=== PATIENT | male | born 1985 | race Caucasian/White ===

== ENCOUNTER → 2018-08-12 12:59 | Outpatient (CLI) | payer SELFPAY ==
[2018-08-13 07:08] LABS: Hepatitis C Ab <0.1 s/co ratio (0.0-0.9)
[2018-08-13 20:21] LABS: HEPATITIS B SURFACE AG Negative (Negative); Hep B Surface Antibodies Non Reactive (.)
== END ==
LOC: LAB 13:03
DX: Z11.59 Encounter for screening for other viral diseases (principal); Z72.89 Other problems related to lifestyle
CPT/HCPCS: 36415; 86706; 86803; 86804; 87340

== ENCOUNTER 2025-08-01 07:48 | Emergency (ER) | payer OTHER, SELFPAY ==
[2025-08-01 07:50] VITALS: BP 190/130; PULSE 94; RESP 18; TEMP 36.3; O2SAT 100; BMI 12.8
--- NOTE | 2025-08-01 08:20 | EX.ED.DYSGE1 ---
HPI History of Present Illness Chief Complaint: Substance Abuse Narrative Narrative: Patient is a 39-year-old male with past medical history of opiate abuse on Suboxone, alcohol abuse who presented to the emergency department with wanting alcohol detox. He states that he drinks 12-15 seltzers day and notes that he has never gone through alcohol withdrawal before. He states that his last drink was around 8:30 PM last night. Patient states that he wanted to be sure with his Suboxone that things were taken care of appropriately as opposed to going directly to an outpatient setting. PFSH [facility] Medical History MRSA (methicillin resistant staph aureus) culture positive Opiate abuse, episodic Alcohol abuse Home Medications ?Medication ?Instructions ?Recorded ?Last Taken ?Type buprenorphine 2 mg-naloxone 0.5 mg 0.75 ea sublingual DAILY 08/01/25 Unknown History sublingual film Allergy/AdvReac Type Severity Reaction Status Date / Time sulfamethoxazole (From Allergy Vomiting Verified 08/01/25 07:49 Sept) trimethoprim (From Aprra) Allergy Vomiting Verified 08/01/25 07:49 Social History Smoking Status: Never smoker ROS ROS ED ROS Narrative Constitutional: Denies any fevers, chills, headache Eyes: denies double vision Cardiovascular: Denies chest pain Respiratory: Denies shortness of breath Abdomen: Denies abdominal pain nausea vomit diarrhea : Denies urinary symptoms Neurological: Denies any numbness, weakness, tingling Musculoskeletal: Denies back pain Skin: Denies any rashes or lesions EXAM Physical Exam Narrative Exam Narrative: General: Patient was lying in bed rest comfortably did not appear to be in acute distress Head: Atraumatic, normocephalic Eyes: PERRL bilaterally, EOMI bilaterally, no conjunctival injection noted Neck: Soft, supple, trachea midline Cardiovascular: Regular rate and rhythm Respiratory: Clear to auscultation bilaterally Extremities: +5/5 strength noted in the bilateral upper and lower extremities Neurological: Patient likely has new that he was at [facility] year is 2024 Skin: Warm, dry, tact no rashes or lesions noted Const Vital Signs: 08/01/25 07:50 08/01/25 09:49 Temperature 97.3 F L 98.5 F Temperature Source Temporal Oral Pulse Rate 94 78 Respiratory Rate 18 17 Blood Pressure 190/130 H 164/97 H Blood Pressure Mean 150 119 Pulse Ox 100 100 Oxygen Delivery Method Room Air Room Air MDM MDM MDM Narrative Medical decision making narrative: Patient is a 39-year-old male who presented to the emergency department with a chief complaint of wanting to detox from alcohol. On the differential diagnose includes abdominal to alcohol abuse, alcohol drawl. Patient when I mentioned about being admitted to the hospital for several days for detox prior to going into outpatient program he states that his father is up from [place] he has not seen him in few days and would prefer to not be admitted. Will consult social work to see what resources we can provide to him. Social work evaluate the patient and provide resources for him and he would like to go home and follow-up with these resources. He was encouraged to return with worsening symptoms or other concerns. He is agreeable this plan all question concerns answered he was discharged home in stable condition Discharge Plan Triage Chief Complaint: Substance Abuse ED Provider: Arden Valenzuela Dx/Rx/DC Orders Clinical Impression: Alcohol abuse, Opiate abuse, episodic, Encounter for medical screening examination Prescriptions: No Action buprenorphine-naloxone 2-0.5 mg film 0.75 ea sublingual DAILY Primary Care Provider: Care Physician,No Primary Referrals: Care Physician,No Primary [Primary Care Provider, Medical] Zoila Nichole, [employer] Activity Restrictions/Additional Instructions: Follow-up with resources that you are provided. Return with worsening symptoms or any other concerns. If you want detox inpatient you can return to the emergency department. Print Language: Cymraes Disposition Disposition: Home, Self Care
--- OUTSIDE RECORDS SUMMARY | 2025-08-01 08:35 | XMS RPT_ITS | CCD ---
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 Name Role Phone SAÚL BASHIR Unavailable Unavailable PALACIOS, MUSTAPHA A Unavailable Unavailable WEIRICK COOPER A Unavailable Unavailable SAÚL BASHIR Unavailable Unavailable RICK WEI Unavailable Unavailable MUSTAPHA PALACIOS A Unavailable Unavailable NOEL GIBBONS L Unavailable Unavailabl e RAY, ROMINA Verma Unavailable Unavailable RYA, ROMINA Verma Unavailable Unavailable RAY, ROMINA Verma Unavailable Unavailable RAY, ROMINA Verma Unavailable Unavailable GUI BASILIO Unavailable Unavailable GUI BASILIO Unavailable Unavailable Primay Care Physicia, No Unavailable Unavail able JOSS COATS Admitting Unavailable JOSS COATS Attending Unavailable JOSS COATS Primary Care Unavailable MAGALIS LI Consulting Unavailable PROVIDER, UNKNOWN Consulting Unavailable Allergies Allergy Classification Reported Allergen(s) Allergy Type Date of Onset Reaction(s) Facility (2 sources) sulfamethoxazole / trimethoprim; Translations: [SULFAMETHOXAZOLE-TR IMETHOPRIM] [facility] Sulfamethoxazole / Trimethoprim Drug Allergy [facility] Repository Problems Active Problems Problem Classification Problem Date Documented Da te Episodic/Chronic Immunizations and screening for infectious disease (1 source) Encounter for screening for other viral diseases; Translations: [Z11.59 - Encounter for screening for other viral diseases] Onset: 08-12-2018 Episodic Residual codes; unclassified (1 source) Other problems related to lifestyle; Translations: [Z72.89 - Other problems related to lifestyle] Onset: 08-12-2018 Episodic Skin and subcutaneous tissue infections (4 sources) Cutaneous abscess, unspecified; Translations: [Cutaneous abscess of right upper limb] Onset: 12-11-2017 Episodic Unclassified (2 sources) Unknown / UNK(Unknown) Onset: 11-17-2017 Past or Other Problems Problem Classification Problem Date Documented Da te Episodic/Chronic Unclassified (1 source) JEANNETTE HUTTON PX/UDS Onset: 11-17-2017 Results Test Name Value Interpretation Reference Range Facility SHOULDER COMPLETE RTon 10-22 SHOULDER COMPLETE RT [facility] [address], [place] [address] Patient: MILES BARRAGAN Phone#: : 1985 Age: 38 Gender: M Pt. Type: ER Account: [id number] Location: 052 Ordering: JOSS COATS Exam Date: 10/23/2023/8:54 Family Phys: Charge Code: 764249 Physician: [place] Order #: [id number] Dose#: PROCEDURE: X-RAY SHOULDER COMPLETE RT MIN 2 VIEWS COMPARISON: None. INDICATIONS: Trauma. FINDINGS: BONES: Normal. No significant arthropathy or acute abnormality. Humeral head is normal in contour. Joint space is maintained. No fracture or dislocation. SOFT TISSUES: Negative. No visible soft tissue swelling. EFFUSION: None visible. OTHER: Degenerative changes of the spine CONCLUSION: No acute osseous abnormality Dictated by: Yarelis Sam MD on 10/23/2023 at 20:56 Approved by: Yarelis Sam MD on 10/23/2023 at 21:02 Normal [facility] Hep B Surface Antibodieson 0 08-13-2018 Hep B Major AB Non Reactive Normal . [facility] Comment on above: Result Comment: Non Reactive: Inconsistent with immunity, less than 10 mIU/mL Reactive: Consistent with immunity, greater than 9.9 mIU/mL Performed By: #### L 3100.0390, L3100.0528, L3100.0725 ####[facility] (refer to report for specific site)refer to report for address and phone number Hepatitis B Surface Agon HB SURF AG Negative Normal Negative [facility] Comment on above: Result Comment: Perf ormed at: CB - [facility] [address] [id number] Director: Jatin Marques PhD, Phone: [phone] Performed By: #### L 3100.0390, L3100.0528, L3100.0725 ####[facility] (refer to report for specific site)refer to report for address and phone number Hepatits C Ab w/ Verificatio non 08-13-2018 COMMENT Comment Normal . [facility] Comment on above: Result Comment: Non reactive HCV antibody screen is consistent with no HCVinfection, unless recent infection is suspected or otherevidence exists to indicate HCV infection. Performed By: #### L 3100.0390, L3100.0528, L3100.0725 ####[facility] (refer to report for specific site)refer to report for address and phone number HCV Ab <0.1 Normal 0.0-0.9 [facility] Comment on above: Performed By: #### L 3100.0390, L3100.0528, L3100.0725 ####[facility] (refer to report for specific site)refer to report for address and phone number ALLIED HEALTHon 12-13-2017 [facility] HNO ID: [id number] thor: Starr Iniguez (Rn), RNService: Home Care ServicesAuthor Type: Registered NurseType: Allied HealthFiled: 12/13/2017 11:42 AMNote Text:TANK CAR MECHANIC NOTESERVICE DATE: 12/13/2017SERVICE TIME: 11:42 AMReferral:[facility] Infusion benefitsWill continue to follow for physician ordersSIGNATURE: Starr Iniguez RN PATIENT NAME: Miles BarraganDATE: December 13, 2017 : 11:42 AM [facility] ANES Ana Maria 12-13-2017 ANES POST HNO ID: [id number] thor: Romeo Ty PService: AnesthesiologyAuthor Type: PhysicianType: Anesthesia PostOpFiled: 12/13/2017 5:13 PMNote Text:POST ANESTHESIA EVALUATION NOTESERVICE DATE: 12/13/2017SERVICE TIME: 5:13 PMDOB: 1985Vitals: [phone]: 36.1 ?C (97 ?F) 36.9 ?C (98.4 ?F) 36 ?C (96.8 ?F) 36.8 ?C (98.2 ?F) 12/13/1812BP: 127/69 112/56 126/78 122/74 12/13/1812Pulse: 74 (!) 53 (!) 57 63 12/13/1812Resp: 18 18 17 13 12/13/1808SpO2: 100% 100% 100% 100%Validated Vital Signs: YesPOST ANES STATUS: No apparent anesthetic complications. The patient isappropriately hydrated with stable respiratory and cardiovascular status.Patient has safe and adequate airway control. The patient has appropriatepain relief and no significant post operative nausea or vomiting. Thepatient has achieved baseline mental status.Further assessment by Anesthesia Service: NoneOther Remarks:SIGNATURE: Romeo Ty MD PATIENT NAME: Miles BarraganDATE: December 13, 2017 : 5:13 PM PAGER/CONTACT #: [facility] ANES PREOPon 12-13-2017 ANES PREOP HNO ID: [id number] thor: Romeo Ty PService: AnesthesiologyAuthor Type: PhysicianType: Anesthesia PreOpFiled: 12/13/2017 2:39 PMNote Text: ANESTHESIOLOGY DAY OF SURGERY NOTESERVICE DATE: 12/13/2017SERVICE TIME: 1:33 PMDOB: 1985Procedure(s) (LRB):INCISION AND DRAINAGE ABSCESS EXTREMITY UPPER (Right)DEBRIDEMENT MUSCLE AND FASCIA UPPER EXTREMITY EACH ADDITIONAL 20 SQ CM(Right)Surgeon(s):Saúl KochcEstimated body mass index is 23.06 kg/m? as calculated from the following: Height as of this encounter: 182.9 cm (6'). Weight as of this encounter: 77.1 kg (170 lb).Most recent hematocrit and potassium results:Hematocrit 31.5 12/13/2017Potassium 3.4 12/13/2017ANES DOS/PREOP NOTE:Vitals: 12/13/179900 255 12/13/18123BP: 119/62 139/65 127/69 112/56Pulse: (!) 53 (!) 56 74 (!) 53Resp: 16 17 18 18Temp: 36.8 ?C (98.2 ?F) 36.1 ?C (97 ?F) 36.9 ?C (98.4 ?F) 36 ?C (96.8 ?F)TempSrc: Temporal Artery Temporal Artery Oral Temporal ArterySpO2: 100% 100% 100% 100%Weight:Height:ACTIVE PROBLEM LISTAbscess of Right ArmAbscess of ArmNicotine use disorder, F17.2No past medical history on file.PAST SURGICAL HISTORYProcedure Laterality Date- TONSILLECTOMY HXHistory reviewed. No pertinent family history.Social History:Social HistorySubstance Use Topics- Smoking status: Never Smoker- Smokeless tobacco: Current User Types: Chew- Alcohol use NoNo current facility-administered medications on file prior to encounter.No current outpatient prescriptions on file prior to encounter.Current Facility-Administered Medications:[MAR Hold due to Transfer] NaCl 0.9% iv infusion 100 mL/hr INTRAVENOUSCONTINUOUS Saúl Barr Vrabec Last Rate: 100 mL/hr at 12/12/17 2318 100mL/hr at 12/12/17 2318[MAR Hold due to Transfer] vancomycin iv piggyback 1 g in D5W 200 mL(VANCOCIN) 1 g INTRAVENOUS q 12 HR Saúl Barr Vrabec Last Rate: 200mL/hr at 12/13/17 1202 1 g at 12/13/17 1202[MAR Hold due to Transfer] 0.9% NaCl 2-10 mL 2-10 mL INTRAVENOUS q 12 HGregdesi Destin Vrabec 3 mL at 12/13/17 0900[MAR Hold due to Transfer] HYDROcodone 5 mg - acetaminophen 325 mg tablet(NORCO) 1-2 tablet ORAL q 6 H PRN Saúl Barr Vrabec 2 tablet at 6[MAR Hold due to Transfer] morphine 2 mg injection 2 mg INTRAVENOUS q 2 HPRN Saúl Barr Vrabec[SEP Hold due to Transfer] zolpidem 5 mg tab(s) (AMBIEN) 5 mg ORAL HS PRNGregdesi Anthonyabec[SEP Hold due to Transfer] diphenhydrAMINE 25 mg (BENADRYL) 25 mg ORAL q 4H PRN Saúl Barr Vrabec[MAR Hold due to Transfer] therapeutic multivitamin with iron(THERAGRAN-M) 1 tablet ORAL DAILY Saúl Anthonyabec 1 tablet at [SEP Hold due to Transfer] celecoxib 100 mg cap(s) (CeleBREX) 100 mg ORALBID Saúl Barr Vrabec 100 mg at 12/13/17 0846[SEP Hold due to Transfer] ondansetron 4 mg tab(s) (ZOFRAN) 4 mg ORAL q 6H PRN Saúl AnthonyabecOr[SEP Hold due to Transfer] ondansetron (PF) 4 mg injection (ZOFRAN) 4 mgINTRAVENOUS q 6 H PRN Saúl Anthonyabec[SEP Hold due to Transfer] piperacillin-tazobactam 3.375 g in dextrose(iso-osmotic) 50 mL (ZOSYN) 3.375 g INTRAVENOUS q 6 H Saúl AnthonyabecLast Rate: 100 mL/hr at 12/13/17 0846 3.375 g at 12/13/17 0846Allergies:ALLERGIESAller gen Reactions- Septra [Sulfamethox* HivesDOS EXAM: Adequate NPO status: YesAnesthetic risks, benefits, alternatives, personnel and consent discussed:YesPatient agrees to proceed: YesPrevious Anesthesia: No history of adverse event.Airway Assessment: MP 1; Neck ROM: Full ROM without neurologic symptoms;Airway Evaluation: No significant abnormalitiesSymptoms of Sleep Apnea: Male genderDentition: Teeth intactAdditional Physical Exam:Lungs: Patient health status unchanged since recent history and physical.See history and physical for exam findings.Cardiac: Patient health status unchanged since recent history andphysical. See history and physical for exam findings.Additional Pertinent Findings: N/ABlood Products: Not anticipated for this procedure.Anesthetic Plan: General, Standard ASA MonitorsPain Management Plan: Parenteral or OralASA Class: 2Other Medical Problems: NoneChronic Beta Emil medication administered within 24 hours: N/AI have interviewed and examined the patient. I have reviewed the medicalrecord and/or the pre-anesthesia evaluation, pertinent labs, and testresults.Significant changes in the patient's condition since the History andPhysical, not otherwise documented in primary service progress notes: NoThis contains updated information obtained within 48 hours ofSurgery/Procedure.SIGNATUR E: Romeo Ty MD PATIENT NAME: Miles BarraganDATE: December 13, 2017 : 1:33 PM CSN: [id number] [facility] BRIEF OP NOTon 12-13-2017 BRIEF OP NOT HNO ID: [id number] thor: Zain Calvert (Res)Service: Orthopaedic SurgeryAuthor Type: ResidentType: Brief Op NoteFiled: 12/13/2017 3:36 PMNote Text:BRIEF OPERATIVE / PROCEDURE NOTELOG ID: [id number]/PROCEDURE DATE: 12/13/2017INCISION/PROCEDURE START TIME: 3:16 PMINCISION CLOSE/PROCEDURE END TIME: 3:29 PMSURGEON(S)/PROCEDURALIST(S ) AND CONSUMER SALES REPRESENTATIVE(S):Surgeon(s) and Role: * Saúl Bashir - Primary * Jm (Res) Isabelle - Resident - Assisting * Zain (Res) Nehal - Resident - AssistingNo Additional StaffSURGERY/PROCEDURE(S):1. Repeat irrigation and debridement right arm abscess2. Wound closure right arm abscessANESTHESIA: GeneralFINDINGS: clean woundESTIMATED BLOOD LOSS: minimalSPECIMENS: NoneCOMPLICATIONS: NonePRE-OP/PRE-PROCEDURE DIAGNOSIS: Abscess of arm [L02.419]POST-OP/POST-PROCED URE DIAGNOSIS: Abscess of arm [L02.419]POST OP PLAN:-Pain control-Keep dressing clean and dry-ID consult: await final recommendations for antibiotics-Discharge home later tonight after antibiotic recs-Follow up with PCP in 3 days for wound check and again in 10 days forsuture removal. [facility] from [facility] and is okay to follow up withPCP for wound check and suture removalSIGNATURE: Zain Calvert MD PATIENT NAME: Miles BarraganDATE: December 13, 2017 : 3:33 PM PAGER/CONTACT #: [facility] Basic Panelon 12-13-2017 Creatinine 0.79 mg/dL Normal 0.67-1.17 [facility] Comment on above: Performed By: #### P 8 ####[facility] [place], [place] [address] Anion gap 8 mmol/L Normal 8-16 [facility] Comment on above: Performed By: #### P 8 ####[facility] [place], [place] [address] CO2 27 mmol/L Normal 21-32 [facility] Comment on above: Performed By: #### P 8 ####[address] [address] Glucose mass conc 84 mg/dL Normal 70-99 [facility] Comment on above: Performed By: #### P 8 ####[address] [address] Urea nitrogen 6 mg/dL Low 7-18 [facility] Comment on above: Performed By: #### P 8 ####[address] [address] Calcium 8.5 mg/dL Normal 8.5-10.1 [facility] Comment on above: Performed By: #### P 8 ####[address] [address] Chloride 110 mmol/L High 98-107 [facility] Comment on above: Performed By: #### P 8 ####[address] [address] Potassium molar conc 3.4 mmol/L Low 3.5-5.1 [facility] Comment on above: Performed By: #### P 8 ####[address] [address] Sodium 142 mmol/L Normal 136-145 [facility] Comment on above: Performed By: #### P 8 ####[address] [address] CASE MANAGEMon 12-13-2017 CASE MANAGEM HNO ID: [id number] thor: Fabby Wang (Rn), RNService: Care ManagementAuthor Type: Registered NurseType: Orestes Mgt Progress NoteFiled: 12/13/2017 8:34 AMNote Text:Per MD notes, pt will have a repeat I AND D today. Pt is currently on 2 IVatbs. + wound vac currently. If pt needs to go home with wound vac that isnot disposable, [facility] will need wound measurements to obtain proper vac viainsurance.. [facility] CASE MGT INIT Cyndie 2017 CASE MGT INIT JORDYN HNO ID: [id number]: Fabby Wang (Rn), RNService: Care ManagementAuthor Type: Registered NurseType: Care Mgt Initial AssessmentFiled: 12/13/2017 11:25 AMNote Text:CARE MANAGEMENT: ASSESSMENT AND DISCHARGE PLANSERVICE DATE: 12/13/2017SERVICE TIME: 1047PRIMARY CARE PHYSICIAN:No primary care provider on file.Phone: NoneADMISSION STATUS: InpatientNeeds Prior to Discharge: Procedure;To Be Determined (if needs vac at d/c;please chart wound measurements (unless it is Prevena vac))MEDICAL:Patient/Represe ntative Stated Goals:To have reduction in painTo have reduction in symptomsTo return home to life as it wasTo be cured/healedHealth Insurance: [employer] Issues Impacting Discharge Plan: NoneLast Admission Date: noneIs this Within the Past 30 days? NoAdvance Directive:Health Literacy:1. How often do you need to have someone help you when you readinstructions, pamphlets, or other written material from your doctor orpharmacy? Never - 12. How confident are you filling out medical forms by yourself? Extremely- 1If Patient scores > 3 on either question, the following interventions wereput into place:Patient did not score > 3FUNCTIONAL AND COGNITIVE/BEHAVIORALPRIOR TO ADMISSION:Baseline Mental Status: Alert AND Oriented, Person, Place , Time andSituationFunctional Status: IndependentDoes Patient Currently Receive Any Community Services or Home Care? NoneEquipment Prior to Admission: Cane - Unknown typeCrutchesHas the Patient Been in a Senior Living Facility in the Past 30 days? NoSOCIAL:Living Arrangement: HomeLives With: Spouse and and 2 kidsFinancial Resources: Employed: [employer]Primary Contact: Extended Emergency Contact InformationPrimary Emergency Contact: Mallorie Barragan Xambyhvh: NoneSupportive: YesOther Important Patient Contacts: NoneCaregiver Assessment:Caregiver is ready, willing and able to meet the patient's needs asrecommended by the inter-professional team? YesPatient's transition needs and plan for meeting these needs: yesDoes the patient have an acute stroke diagnosis, or has the patient had astroke during this admission? NoMedication Adherence:I am convinced of the importance of my prescription medication: Agreecompletely - 0I worry that my prescription medication will do more harm than good to meDisagree completely - 0I feel financially burdened by my [id number] expenses for myprescription medication: Disagree completely - 0Patient is categorized as low risk < 2Are you interested in bedside delivery of your medications? YesFood Concerns:In the Last Month, Have You had Trouble Getting Food? No trouble gettingfoodDuring the Last Month, Have You Worried Whether Your Food Would Run OutBefore You Had Enough Money to Buy More? NoIs the Patient Psychosocially Complex? NoASSESSMENT AND PLAN:Medical Needs: NonePsychosocial Needs: NoneFREEDOM OF CHOICE EXPLAINED:Yes pt wants CCAG VNS if HC is necessary at d/c.POTENTIAL TRANSITION PLANSTo Be Determined+ wound vac currently; repeat I AND D today.SIGNATURE: Fabby Wang RN PATIENT NAME: Miles BarraganDATE: December 13, 2017 : 11:23 AM PAGER/CONTACT #: [phone] [facility] 12-13-2017 [facility] HNO ID: [id number] thor: Jasen Hernandez (Res)Service: Orthopaedic SurgeryAuthor Type: ResidentType: Discharge SummariesFiled: 12/13/2017 7:31 PMNote Text:DISCHARGE SUMMARYPATIENT NAME: Miles BarraganMRN: [id number] Information Admission Information ADMIT DATE: 12/10/2017DISCHARGE DATE: 12/13/17MY DOCTORS AND MEDICAL TEAM:[facility] Doctor: Saúl Montesinos Care Provider: No primary care provider on file.My Medical Team Members: Treatment Team:Attending Provider: Saúl Arthurulting: Rick Choi Nicole CONDITION AT DISCHARGE: StableREASON I WAS IN THE HOSPITAL: Right arm abscessSUMMARY OF WHAT HAPPENED WHILE I WAS IN THE HOSPITAL: Repeat irrigationand debridement R arm abscess and closureOTHER PROBLEMS/DIAGNOSIS:Principal Problem (Resolved): Abscess of right armActive Problems: Nicotine use disorder, F17.2Resolved Problems: Abscess of armOPERATIONS PERFORMED WHILE IN THE HOSPITAL: Repeat irrigation anddebridement R arm abscess and closureIMPORTANT TEST/PROCEDURES:As above Discharge Disposition Discharge Disposition: Home With Self CareActivity When You Leave the Hospital Weight-bearing limited to: WBAT RUEWound/Surgical Site Care Keep your dressing clean and dryCall Your Doctor If There is severe pain at the operative site You have redness, swelling, pus or drainage from the wound Your temperature is greater than 101FFollow Up Appointments Follow-Up Appointment When: In 2 weeks Patient/Parents to call for appointment?: Yes Saúl Barr [phone] [address] [address] PCP Requested ReferralAdditional Provider to Provider Information:No notes on file Ruled OutFOLLOW-UP APPOINTMENTS ALREADY SCHEDULED WITH A [facility] PROVIDER:No future appointments.DISCHARGE MEDICATION: Current Discharge Medication ListSTART taking these medicationsHYDROcodone-aceta minophen (NORCO) 1-2 tabletsTake 1-2 tablets by mouth every 6 hours as needed.Earliest Fill Date: 12/13/17Qty: 28 tablet Refills: 0Associated Diagnoses:Abscess of right armamoxicillin-clavulanic acid (AUGMENTIN) 875 mgTake 875 mg by mouth every 12 hours.Qty: 14 tablet Refills: 0Discharge Physical Exam:VITAL SIGNS: BP 116/64 Pulse 61 Temp 36.8 ?C (98.2 ?F) (TemporalArtery) Resp 16 Ht 182.9 cm (6') Wt 77.1 kg (170 lb) SpO2 100% BMI 23.06 kg/m?GENERAL: Alert, no distress, cooperativeTIME OF CARE: Discharge Management: I personally spent greater than 30minutes involved in the discharge management of this patient.SIGNATURE: Jasen Hernandez MD PAGER/CONTACT #:DATE: December 13, 2017TIME: 7:31 PM [facility] CONSULTon 12-13-2017 CONSULT HNO ID: [id number] thor: Rick Wei AService: Infectious DiseaseAuthor Type: PhysicianType: ConsultsFiled: 12/13/2017 4:18 PMNote Text:Pt seen 1555; can send home on augmentin for grp F strep and presumedanaer;NO ID F/U NEEDED;Rick Wei MD12/13/20174:18 PMpgr 4195 [facility] CONSULT HNO ID: [id number] thor: Rick WeiService: Infectious DiseaseAuthor Type: PhysicianType: ConsultsFiled: 12/14/2017 11:51 AMNote Text:[facility] - ConsultationPATIENT NAME: MILES BARRAGAN RMRN: [id number] CSN: [id number] OF : 1985 SEX/AGE: M/32PATIENT TYPE: I HOSP [facility]: [facility] LOCATION: [id number] number is actually [id number], although I saw him in the PACU.HISTORY OF PRESENT ILLNESS: This is a 32-year-old white male, whom wewereconsulted on by the Orthopedic Service for home going antibioticrecommendations in somebody with a right arm abscess after trauma and 2debridements. 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 Apparently, a piece of metal thatwas part of the trim rack, when he was trying to move the rack, puncturedhis right upper arm. He jumped back and had a hole. He states it wasnot grossly contaminated, but these racks are always outside, and hestates that was on a Wednesday. By Wednesday, the area started to become redand painful and started to drain a little bit material. [facility] where [facility] it and some of thedrainage came out with a very foul tissue smell, and he wastransferred here under the Orthopedic Service on the night of the .Apparently, that growing red area was masslike, very warm, hot, red,progressively enlarged. Apparently, the outside hospital aspirated agood amount from the area of the fluctuance, gave him IV antibiotic andsent him over. Apparently, they did not give him a tetanus shot, andaccording to our ER he was not up to date. When he came here in the ER,bedside ultrasound showed complex abscess, and Orthopedics was admittinghim fordebridement. According to another ER note, they were updating his tetanusimmunization, which of course was necessary. Orthopedics initiallydiscussed clindamycin, but at some point the patient got switched tovancomycin and Zosyn. He was operated on the 12th in the morning whenthey got into the lateral aspect of the antecubital fossa overlying thedraining wound. Pus was expressed through the wound. Cultures wereobtained. Vanc IV was then given. Hemostat dissection was used, did notviolate the underlying fascia, and vital structures wereconsidered safe. Vein dissection opened up a pocket, a loculation, andtheabscess cavity physically to them was 12 x 8 x 3 cm. He was thenirrigated. A VAC was placed. Discussion with Dr. Bashir reveals,today's surgery, the cavity was pristine and looked very good.The patient's main complaint now is the pain postop. He is otherwisefine. No fevers, chills, nausea, vomiting. No adverse reaction to theantibiotics, which currently were listed as vancomycin and Zosyn.OTHER PAST SURGICAL HISTORY: The patient has had 3 or 4 different woundinfections from punctures, scrapes, or scratches. He has had atonsillectomy. No current medical problems.ANTIBIOTIC ALLERGIES: Septra makes his throat start to close and bodyswell, trouble breathing. He had this as a child.He says that he had some type of infection on his right foot in the lastyear or two, which they thought was MRSA, and he got treated, but he cannot remember what for, and it went away.PHYSICAL EXAMINATION:GENERAL: The patient is in no acute distress. He has postop nontoxiclook. VITAL SIGNS: Stable. He has been afebrile during his stay here.HEENT: Unremarkable externally. Mouth is clear.HEART: Regular.LUNGS: Clear.ABDOMEN: Benign.JOINTS: No acute changes. Easy respirations. No cough. Right arm siteis wrapped because of its postoperative nature above and below and areunremarkable.LABORATORY DATA: White counts have been normal. Platelets fine.Creatinine fine. A vanc trough on the was 9.2. Cultures here areyoung. Gram stain, gram-positive cocci, gram-positive rods.[facility] from [facility], they can identify the organism, but theydo not do sensitivitiesunless sent to [facility]. He grew group F strep,but it was an aerobic culture only, and there was no Gram stain, so thereis no way to know if there were anaerobes.ASSESSMENT AND PLAN:1. Right arm soft tissue abscess due to puncture wound with a putrid smelland group F strep on aerobic culture. Therefore, we have to presume thatthe gram- positive rods are either skin katie contaminants or actualgram-positive anaerobes. Either way, he has been covered with antibiotics herebetween vanc and Zosyn, and as far as that goes the only drug we need at home rightnow is Augmentin, which is good anaerobe coverage since the pus has been allremoved or just mopping up any microscopic foci, so Augmentin should beperfectly fine. He is actually day 3+ of antibiotics. So, 10 days when danish is fine, that will finish this up.2. Group F strep infection. See above.3. Presumptive anaerobe infection. See above.4. Sulfa allergy. We will avoid and probably it is not the mostappropriate drug here anyway.5. Discussed issues with the patient and Dr. Bashir to coordinate care,takes more time, at least 20 minutes coordination time.You may discontinue him with the Augmentin 875 p.o. b.i.d. for 10 moredays. We are going to switch all his antibiotics here to 1 more dose,Unasyn, before he goes stat, which will cover this, and then he can gethis Augmentin for later tonight or even tomorrow morning since he has hada good clean out. No Infectious Disease followup is necessary.Thank you for allowing us to participate in his care.Rick Wei MDInfectious DiseaseDAW:modlD: 12/13/2017 16:32:05T: 12/14/2017 03:50:17Job #: [id number] [facility] Hemogram/Diffon 12-13-2017 Abs Immature Grans 0.01 thou/cmm Normal 0.00-0.05 [facility] Comment on above: Performed By: #### C BCD1 ####[facility] [place] [address] Abs. Baso 0.02 thou/cmm Normal 0.01-0.08 [facility] Comment on above: Performed By: #### C BCD1 ####[place] [address] Abs. [place] 0.37 thou/cmm Normal 0.30-0.82 [facility] Comment on above: Performed By: #### C BCD1 ####[place] [address] Abs. Neut 2.82 thou/cmm Normal 1.78-5.38 [facility] Comment on above: Performed By: #### C BCD1 ####[place] [address] Basophils/100 WBC Auto (Bld) 0.4 % Normal [facility] Comment on above: Performed By: #### C BCD1 ####[place] [address] Eosinophils 0.16 thou/cmm Normal 0.04-0.54 [facility] Comment on above: Performed By: #### C BCD1 ####[place] [address] Eosinophils/100 leukocytes 3.3 % Normal [facility] Comment on above: Performed By: #### C BCD1 ####[place] [address] Erythrocyte distribution width Auto Ratio (RBC) 12.8 % Normal 11.6-14.4 [facility] Comment on above: Performed By: #### C BCD1 ####[place] [address] Erythrocytes (RBC) 3.59 mil/cmm Low 4.63-6.08 [facility] Comment on above: Performed By: #### C BCD1 ####[place] [address] Hematocrit (HCT) 31.5 % Low 40.1-51.0 [facility] Comment on above: Performed By: #### C BCD1 ####[place] [address] Hemoglobin mass conc (Bld) 10.1 g/dL Low 13.7-17.5 [facility] Comment on above: Performed By: #### C BCD1 ####[place] [address] Immature Grans 0.20 % Normal [facility] Comment on above: Performed By: #### C BCD1 ####[place] [address] Lymphocytes 1.44 thou/cmm Normal 0.84-2.85 [facility] Comment on above: Performed By: #### C BCD1 ####[place] [address] Lymphocytes/100 leukocytes 29.9 % Normal [facility] Comment on above: Performed By: #### C BCD1 ####[place] [address] MCH 28.1 pg Normal 25.7-32.2 [facility] Comment on above: Performed By: #### C BCD1 ####[place] [address] MCHC mass conc (RBC) 32.1 % Low 32.3-36.5 [facility] Comment on above: Performed By: #### C BCD1 ####[place] [address] MCV 87.7 fL Normal 83.2-95.6 [facility] Comment on above: Performed By: #### C BCD1 ####[place] [address] Monocytes/100 leukocytes 7.7 % Normal [facility] Comment on above: Performed By: #### C BCD1 ####[place] [address] Platelet mean volume (PMV) 10.6 fL Normal 8.7-12.0 [facility] Comment on above: Performed By: #### C BCD1 ####[facility] [place], [place] [address] Platelets 210 thou/cmm Normal 141-365 [facility] Comment on above: Performed By: #### C BCD1 ####[facility] [place], [place] [address] RDW SD 41.1 fl Normal 36.1-45.8 [facility] Comment on above: Performed By: #### C BCD1 ####[address] [address] Seg Neutrophil 58.5 % Normal [facility] Comment on above: Performed By: #### C BCD1 ####[address] [address] WBC (Leukocytes) 4.82 thou/cmm Normal 4.23-9.07 [facility] Comment on above: Performed By: #### C BCD1 ####[address] [address] MDRD GFRon 12-13-2017 eGFR (non-black) mL/min/{1.73_m2} Normal >60mL/m in/1. 73m2 [facility] Comment on above: Result Comment: If t he patient is , multiply the result by 1.210. Performed By: #### G FR ####[address] [address] NURSING PROGon 12-13-2017 NURSING PROG HNO ID: [id number] Author: Maxi Jackson (Rn), RN Service: (none) Author Type: Registered Nurse Type: Nursing Progress Note Filed: 12/13/2017 6:12 PM Note Text: Wilbur to talk to Calvert regarding DC on PO antibiotics , DC home. [facility] NURSING PROG HNO ID: [id number] Author: New Barnhart (Rn), RN Service: (none) Author Type: Registered Nurse Type: Nursing Progress Note Filed: 12/13/2017 4:20 PM Note Text: Rt hand warm, pink, mobile, radial 3+, with out numb/tingling [facility] NURSING PROG HNO ID: [id number] Author: Maxi Jackson (Rn), RN Service: (none) Author Type: Registered Nurse Type: Nursing Progress Note Filed: 12/13/2017 11:42 AM Note Text: ID consulted for homegoing PO antibiotics. [facility] OPERATIVE NOon 12-13-2017 OPERATIVE NO HNO ID: [id number] thor: Saúl Sierraervice: Orthopaedic SurgeryAuthor Type: PhysicianType: Operative ReportFiled: 12/30/2017 1:25 PMNote Text:OPERATIVE NOTELOG ID: [id number]/Procedure Date: 12/13/2017Incision/Procedure Start Time: 3:16 PMIncision Close/Procedure End Time: 3:29 PMSurgeon(s)/Proceduralist(s ) and Business Services Sales Agent(s):Surgeon(s) and Role: * Saúl Bashir - Primary * Nuvpreet (Res) Isabelle - Resident - Assisting * Zain (Res) Nehal - Resident - AssistingNo Additional StaffProcedure(s):Procedure( s) (LRB):INCISION AND DRAINAGE ABSCESS EXTREMITY UPPER (Right)DEBRIDEMENT MUSCLE AND FASCIA UPPER EXTREMITY EACH ADDITIONAL 20 SQ CM(Right)Anesthesia: GeneralSURGERY/PROCEDURE(S): Incision and drainage right antecubital fossa abscess.Delayed primary wound closure right antecubital fossa?ANESTHESIA: General?SURGERY/PROCEDURE DETAILS: Miles Barragan is a 32 y/o male admitted on12/10/17 for a right antecubital fossa abscess. He had undergone an I and Dof his arm with application of wound VAC. We are returning him now to theoperating room for repeat IANDD and wound closure. ?A pre-procedure huddle was performed in the pre-op holding area where thepatient was correctly identified. Patient transferred to the OR andtransferred to the operative bed where all bony prominences were wellpadded. General anesthesia was then given by the anesthesia staff. Apre-op timeout was performed [facility]protocol. Patient's right arm was thoroughly prepped in sterileorthopedic fashion. Sterile drapes were then applied.His previous 5 cm incision had a piece of wound VAC sponge inside it. Thiswas removed. The wound was inspected and found to have pink healthygranulating tissues. The skin edges were viable. No further areas ofpurulence.The wound was irrigated with 1000 cc of sterile saline. We then closed thewound in a single layer with some 2-0 Vicryl sutures. 2-0 nylon in theskin.An Adaptic with bacitracin was applied followed by 4 x 4, ABDs and a bulkycompressive dressing.The patient was then awakened and transferred to the recovery room insatisfactory condition having told the procedure well.After discussion with the ID team will be converted to oral antibioticsand can be discharged home later this evening with follow-up as anoutpatient locally with his PCP.?Estimated Blood Loss: 0 mlSpecimens: NoneComplications: NonePre-Op/Pre-Procedure Diagnosis: Abscess of arm [L02.419]Post-Op/Post-Proced ure Diagnosis: Abscess of arm [L02.419]SIGNATURE: Saúl Bashir MD PATIENT NAME: Miles BarraganDATE: December 30, 2017 : 1:17 PM PAGER/CONTACT #: [facility] PROGRESSon 12-13-2017 PROGRESS HNO ID: [id number] thor: Tacho Contreras (Res)Service: Orthopaedic SurgeryAuthor Type: ResidentType: Progress NotesFiled: 12/13/2017 6:39 AMNote Text:ORTHOPAEDIC SURGERY DAILY PROGRESS NOTEJacoliya Omar Estefania of Evaluation: 12/13/2017 Admission Date: 12/10/2017Time of Evaluation: 6:13 AM : Tacho Contreras MD PAGER/CONTACT #: [phone]:POD # 2 S/P: right arm IANDD and wound vac placement for abscess.PLAN:- PT/OT: Non Weight Bearing Right upper extremity. Long arm splint inplace- DVT Prophylaxis: SCDs while in bed and encouraged ambulation- IV Abx: Vancomycin 1g Q12H, Zosyn 3.375g Q8H for empiric coverage. Willtailor antibiotic regiment once organisms and susceptibilities determined- Follow-up cultures. Few GPB and GBC, follow- NPO at midnight- Plan for repeat IANDD on 12/13- Acute blood loss anemia, Hgb 10.1, monitor, asymptomaticINTERVAL HPI:Patient monitored, no new events overnight.Patient states that they are comfortable. Denies pain. No N/T or motorcomplaints. No CP, SOB, or N/V.OBJECTIVE:BP 139/65 Pulse (!) 56 Temp 36.1 ?C (97 ?F) (Temporal Artery) Resp 17 Ht 182.9 cm (6') Wt 77.1 kg (170 lb) SpO2 100% BMI23.06 kg/m?Intake/Output Summary (Last 24 hours)12/12 2300 - 12/13 0659In: 200 [IV:200]Out: 400 [Urine:400]Exam:General: NADExtremities:Right Upper Extremity: Splint c/d/I Vac in place to suction, no leak SILT all digits BCR all digits + wiggle all fingersLabs:CBC:HGB (g/dL)Date Value12/13/2017 10.1 Hematocrit (%)Date Value12/13/2017 31.5 WBC (thou/cmm)Date Value12/13/2017 4.82 Platelet Count (thou/cmm)Date Value12/13/2017 210 BMP:Glucose (mg/dL)Date Value12/13/2017 84 Potassium (mEq/L)Date Value12/13/2017 3.4 Sodium (mEq/L)Date Value12/13/2017 142 Chloride (mEq/L)Date Value12/13/2017 110 CO2 (mEq/L)Date Value12/13/2017 27 Creatinine (mg/dL)Date Value12/13/2017 0.79 BUN (mg/dL)Date Value12/13/2017 6 Anion Gap (no units)Date Value12/13/2017 8 Calcium (mg/dL)Date Value12/13/2017 8.5 COAGS:No results found for: INRSURGICAL PATHOLOGY:N/AFLUID ANALYSIS:N/AImaging: no new imaging [facility] Vancomycin,Randomon 12-14-19 18 INR Coag RelTime (Bld) 9.2 mg/L Normal [facility] Comment on above: Result Comment: Trou gh 10.0-20.0 mg/LPeak 18.0-40.0 mg/L Performed By: #### V ANCR ####[facility] [place] [address] PROGRESSon 12-12-2017 PROGRESS HNO ID: [id number] thor: Saúl Bashir: Orthopaedic SurgeryAuthor Type: PhysicianType: Progress NotesFiled: 12/12/2017 10:09 AMNote Text:I evaluated the patient and personally participated in the ash components. I agree with the resident's findings and plan as documented and havediscussed the case and management of the patient's care with the resident.Signature: Cedric Luo Date: 12/12/2017Service Time: 10:09 AMORTHOPAEDIC SURGERY DAILY PROGRESS NOTEPatient Name: Miles Mattate of Evaluation: 12/12/2017 Admission Date: 12/10/2017Time of Evaluation: 3:29 AM :32yo M POD#1 s/p IANDD right arm with wound vac placementPLAN:- PT/OT: Non Weight Bearing Right upper extremity. Long arm splint inplace- DVT Prophylaxis: SCDs while in bed and encouraged ambulation- IV Abx: Vancomycin 1g Q12H, Zosyn 3.375g Q8H for empiric coverage. Willtailor antibiotic regiment once organisms and susceptibilities determined- Follow-up cultures. See below- NPO at midnight- Plan for repeat IANDD on 12/13INTERVAL HPI:Patient monitored, no new events overnight.Patient states that they are comfortable. Has some soreness present butotherwise doing okay. Does not specifically remember what grew last timehe had this happenOBJECTIVE:BP 135/61 Pulse 66 Temp 36.2 ?C (97.2 ?F) (Oral) Resp 18 Ht182.9 cm (6') Wt 77.1 kg (170 lb) SpO2 100% BMI 23.06 kg/m?Intake/Output Summary (Last 24 hours)12/11 2299 - 12/12 0659In: 350 [PO:100; IV:250]Out: 770 [Urine:770]ExamGeneral: NAD, UDHp5Kfnmxxsommk:Right Upper Extremity: Splint clean, dry and intact. Wound vac with good suction Motor intact M/R/U/Ax SILT M/R/U/Ax BCR 5 fingers Compartments soft, compressible. Tolerates passive stretch of digits.Wound vac output: 50cc since surgeryOR Cultures (12/11): Few Gram positive bacilli, Few Gram positive cocci ,Moderate WBCNuvpreet Christine Walton MDOrthopaedic Surgery, PGY-3Please page [phone] from 5p-6a and on weekends for any issues.Cell #: [phone] #: [phone]/ 3:29 AM [facility] ANES Ana Maria 12-11-2017 ANES POST HNO ID: [id number] thor: Narendra Gutierrez PService: AnesthesiologyAuthor Type: PhysicianType: Anesthesia PostOpFiled: 12/11/2017 10:54 AMNote Text:POST ANESTHESIA EVALUATION NOTESERVICE DATE: 12/11/2017SERVICE TIME: 10:54 AMDOB: 1985Vitals: 12/11/1804Temp: 36.7 ?C (98.1 ?F) 37 ?C (98.6 ?F) 36.3 ?C (97.3 ?F) 37.2 ?C (99 ?F) 12/11/1809BP: 118/62 135/85 136/95 135/90 12/11/1809Pulse: 64 68 74 71 12/11/1809Resp: 16 16 19 13 12/11/1809SpO2: 94% 100% 100% 97%Validated Vital Signs: YesPOST ANES STATUS: No apparent anesthetic complications. The patient isappropriately hydrated with stable respiratory and cardiovascular status.Patient has safe and adequate airway control. The patient has appropriatepain relief and no significant post operative nausea or vomiting. Thepatient has achieved baseline mental status.Further assessment by Anesthesia Service: NoneOther Remarks:SIGNATURE: Narendra Gutierrez DO PATIENT NAME: Miles BarraganDATE: December 11, 2017 : 10:54 AM PAGER/CONTACT #: [phone] ANES PREOPon 12-11-2017 ANES PREOP HNO ID: [id number] thor: Narendra Gutierrez PService: AnesthesiologyAuthor Type: PhysicianType: Anesthesia PreOpFiled: 12/11/2017 9:56 AMNote Text: ANESTHESIOLOGY DAY OF SURGERY NOTESERVICE DATE: 12/11/2017SERVICE TIME: 8:30 AMDOB: 1985Procedure(s) (LRB):INCISION AND DRAINAGE ABSCESS EXTREMITY UPPER (Right)APPLICATION WOUND VAC EXTREMITY UPPER TOTAL WOUND SURFACE LESS THAN 50 SQCENTIMETERS (Right)DEBRIDEMENT SUBCUTANEOUS TISSUE FIRST 20 SQ CM OR LESS UPPER EXTREMITY(Right)Surgeon(s):Luanne Vogt (Res) BhandalThere is no height or weight on file to calculate BMI.Most recent hematocrit and potassium results:Hematocrit 34.9 12/11/2017Potassium 3.2 12/11/2017ANES DOS/PREOP NOTE:Vitals: 200 215 546 BP: 108/67 115/52 118/62Pulse: 60 63 64Resp: 16 16 16Temp: 36.7 ?C (98.1 ?F) 37 ?C (98.6 ?F) 36.3 ?C (97.3 ?F)TempSrc: Oral Oral Temporal ArterySpO2: 99% 99% 94%Weight: 77.1 kg (170 lb)ACTIVE PROBLEM LISTAbscess of Right ArmNo past medical history on file.PAST SURGICAL HISTORYProcedure Laterality Date- TONSILLECTOMY HXHistory reviewed. No pertinent family history.Social History:Social HistorySubstance Use Topics- Smoking status: Never Smoker- Smokeless tobacco: Current User Types: Chew- Alcohol use NoNo current facility-administered medications on file prior to encounter.No current outpatient prescriptions on file prior to encounter.Current Facility-Administered Medications:[MAR Hold due to Transfer] NaCl 0.9% iv infusion 100 mL/hr INTRAVENOUSCONTINUOUS Tacho (Res) Tysklind Last Rate: 100 mL/hr at 12/11/17 0307 100mL/hr at 12/11/17 0307[MAR Hold due to Transfer] ondansetron (PF) 4 mg injection (ZOFRAN) 4 mgINTRAVENOUS q 6 H PRN Tacho (Res) Tysklind[MAR Hold due to Transfer] morphine 2 mg injection 2 mg INTRAVENOUS q 3 HPRN Tacho (Res) Tysklind 2 mg at 12/11/17 0728[MAR Hold due to Transfer] oxyCODONE-acetaminophen 5-325 mg 1-2 tablet(PERCOCET) 1-2 tablet ORAL q 6 H PRN Tacho (Res) Tysklind[MAR Hold due to Transfer] potassium chloride iv piggyback 20 mEq insterile water 100 mL 20 mEq INTRAVENOUS q 2 H Nuvpreet (Res) Bhandalvancomycin iv piggyback 1 g in D5W 200 mL (VANCOCIN) 1 g INTRAVENOUS ONCEGregory Destin Vrabecvancomycin iv piggyback 1 g in D5W 200 mL (VANCOCIN) 1 g INTRAVENOUS ONCEGregory Destin Vrabecvancomycin iv piggyback 1 g in D5W 200 mL (VANCOCIN) X (OR/PROCEDURE)CONTINUOUS Saúl Destin Vrabec 1 g at 12/11/17 0917Allergies:ALLERGIESAller gen Reactions- Septra [Sulfamethox* HivesDOS EXAM: Adequate NPO status: YesAnesthetic risks, benefits, alternatives, personnel and consent discussed:YesPatient agrees to proceed: YesPrevious Anesthesia: No history of adverse event.Airway Assessment: MP 1; Neck ROM: Full ROM without neurologic symptoms;Airway Evaluation: No significant abnormalitiesSymptoms of Sleep Apnea: Male genderDentition: Poor dentitionAdditional Physical Exam:Lungs: Patient health status unchanged since recent history and physical.See history and physical for exam findings.Cardiac: Patient health status unchanged since recent history andphysical. See history and physical for exam findings.Additional Pertinent Findings: N/ABlood Products: Not anticipated for this procedure.Anesthetic Plan: General, Standard ASA MonitorsPain Management Plan: Parenteral or OralASA Class: 2EOther Medical Problems: NoneChronic Beta Emil medication administered within 24 hours: N/AI have interviewed and examined the patient. I have reviewed the medicalrecord and/or the pre-anesthesia evaluation, pertinent labs, and testresults.Significant changes in the patient's condition since the History andPhysical, not otherwise documented in primary service progress notes: NoThis contains updated information obtained within 48 hours ofSurgery/Procedure.SIGNATUR E: Narendra Gutierrez DO PATIENT NAME: Miles BarraganDATE: December 11, 2017 : 9:55 AM CSN: [id number] [facility] Basic Panelon 12-11-2017 Creatinine 0.84 mg/dL Normal 0.67-1.17 [facility] Comment on above: Performed By: #### P 8 ####[place] [address] Anion gap 8 mmol/L Normal 8-16 [facility] Comment on above: Performed By: #### P 8 ####[address] [address] Calcium 8.0 mg/dL Low 8.5-10.1 [facility] Comment on above: Performed By: #### P 8 ####[facility] [place], [place] [address] CO2 29 mmol/L Normal 21-32 [facility] Comment on above: Performed By: #### P 8 ####[facility] [place], [place] [address] Glucose mass conc 92 mg/dL Normal 70-99 [facility] Comment on above: Performed By: #### P 8 ####[place] [address] Urea nitrogen 8 mg/dL Normal 7-18 [facility] Comment on above: Performed By: #### P 8 ####[facility] [place], [place] [address] Chloride 107 mmol/L Normal 98-107 [facility] Comment on above: Performed By: #### P 8 ####[facility] [place], [place] [address] Potassium molar conc 3.2 mmol/L Low 3.5-5.1 [facility] Comment on above: Performed By: #### P 8 ####[address] [address] Sodium 141 mmol/L Normal 136-145 [facility] Comment on above: Performed By: #### P 8 ####[address] [address] CRPon 12-11-2017 C reactive protein (CRP) 5.30 mg/dL High 0.00-0.30 [facility] Comment on above: Performed By: #### C RP3 ####[address] [address] Cult Bloodon 12-11-2017 Cult Blood Test performed at [facility] No growth Normal [facility] Comment on above: Performed By: #### C _BLO ####[address] [address] Cult and Smr TWILA and AERon 0 12-11-2017 Cult and Smr TWILA and AER [facility] skin katie.No further identification to follow.Plates will be held for 5 days.Few Mixed anaerobic katie.No further identification to follow.Plates will be held for 5 days.Few Gram positive bacilliFew Gram positive cocciModerate WBCORGANISM: Eikenella species (ID: 1)Few Normal [facility] Comment on above: Performed By: #### C _ANA ####[address] [address] ED NOTEon 12-11-2017 ED NOTE HNO ID: [id number] thor: Andria Steen (Rn), RNService: Emergency MedicineAuthor Type: Registered NurseType: ED NotesFiled: 12/11/2017 1:36 AMNote Text: Attempted to give report, nurse unable to speak with this nurse at thistime, will call back in 15 minutes [facility] ED NOTE HNO ID: [id number] Author: Andria Steen (Rn), RN Service: Emergency Medicine Author Type: Registered Nurse Type: ED Notes Filed: 12/11/2017 12:12 AM Note Text: Patient ready for x-ray [facility] ED PROV NOTEon 12-11-2017 ED PROV NOTE HNO ID: [id number] thor: Marina Cardenas MDService: Emergency MedicineAuthor Type: PhysicianType: ED Provider NotesFiled: 12/10/2017 11:56 PMNote Text:The [place] and [place] over the site on his rightarm where he sustained an accidental stab wound from sharp edged object atwork 3 days ago. The emergency physician at this facility aspirated pusout of the wound and referred him here for orthopedic consultation. Uponmy exam, the patient does not have any involvement of the joint. He hasan indurated erythematous area that is slightly tender over the anteriorsurface of his distal arm proximal to the antecubital fossa. There is norestriction of movement of the elbow or the shoulder. There is nolymphangitis. We will obtain a CBC and potentially will look for anyadditional fluid by ultrasound over the site. He'll need to see receiveantibiotics. He is in stable condition and will undergo orthopedicconsultation. We will also update his tetanus immunization.Marina Cardenas MD12/10/17 2356 [facility] ED PROV NOTE HNO ID: [id number] thor: Marina Cardenas MDService: Emergency MedicineAuthor Type: PhysicianType: ED Provider NotesFiled: 12/11/2017 1:29 AMNote Text:ED Provider NotePatient Name: Miles BarraganMRN: [id number] DATE: 12/10/17HistoryPatient presents with:Cyst: right arm abscess since wednesday. pt with h/o mrsaHPIThe patient is a 32-year-old male presenting for evaluation of rightdistal upper arm abscess, near his antecubital area. Patient states thathe sustained an open wound from being cut by a dirty object that's a partof his truck on Wednesday. Since Wednesday, the patient noticed a growingmass over the distal portion of his right upper arm that is warm to touch,which has progressively enlarged since then. On Wednesday night, falguni developed a fever. However, he denies having recurrence of feversince then. Patient currently endorsing inability to fully extend hiselbow secondary to pain and swelling. [facility] to [facility] a good amount of pus from the areaof fluctuance. They also gave him IV antibiotics while there, although heis unsure which one it is. Patient did not receive a tetanus shot, and histetanus is not up to date. He was subsequently sent over here for orthoeval, however, he is unsure for what.No past medical history on file.No past surgical history on file.No family history on file.Social HistorySocial History Main Topics- Smoking status: Not on file- Smokeless tobacco: Not on file- Alcohol use Not on file- Drug use: Unknown- Sexual activity: Not on fileALLERGIESAllergen Reactions- Septra [Sulfamethox* HivesReview of SystemsConstitutional: Negative for chills and fever.HENT: Negative for drooling.Eyes: Negative for visual disturbance.Respiratory: Negative for apnea, chest tightness and shortness of breath.Cardiovascular: Negative for chest pain and palpitations.Gastrointestina l: Negative for abdominal pain, diarrhea, nausea andvomiting.Skin: Positive for wound. Negative for pallor.Neurological: Negative for dizziness, numbness and headaches.Hematological: Negative for adenopathy.Psychiatric/Behav ioral: Negative for confusion and suicidal ideas.All other systems reviewed and are negative.Physical ExamBP 119/72 Pulse 63 Temp (Src) 97.5 (Tympanic) Resp 18 Wt 170 lb(77.1kg) SpO2 100%Physical ExamConstitutional: He is oriented to person, place, and time. He appearswell-developed and well-nourished. No distress.HENT:Head: Normocephalic and atraumatic.Mouth/Throat: Oropharynx is clear and moist.Eyes: EOM are normal. Pupils are equal, round, and reactive to light.Neck: Normal range of motion. No tracheal deviation present.Cardiovascular: Normal rate, regular rhythm, normal heart sounds andintact distal pulses.Pulmonary/Chest: Effort normal and breath sounds normal. No respiratorydistress.Abdomina l: Soft. Bowel sounds are normal. He exhibits no distension. Thereis no tenderness. There is no rebound.Musculoskeletal: Normal range of motion. He exhibits no edema ordeformity.Neurological: He is alert and oriented to person, place, and time. He hasnormal reflexes. No cranial nerve deficit.Skin: Skin is warm and dry.Psychiatric: He has a normal mood and affect. His behavior is normal.Judgment normal.Nursing note and vitals reviewed.Diagnostic TestingResults for orders placed or performed during the hospital encounter of12/10/17XR ELBOW GENERAL 2V AP/LAT RTResult Value Ref Range [facility] EXAM: ELBOW 2V AP/LAT RIGHTHISTORY: Right elbow swellingCOMPARISON: None availableFINDINGS: See impression.IMPRESSION:Subopt imal positioning limits this evaluation. If the patient is able totolerate appropriate positioning, recommend repeat frontal view. Otherwise, noacutedisplaced fracture visualized. There is anterior elbow soft tissueswelling. Noobvious fat pad displacement. No soft tissue gas or radiopaque foreignbody.CBC + AUTO DIFF (AK,AV,EU,FV,HL,RADHA,MM,SP)Res ult Value Ref Range WBC 7.36 4.23 - 9.07 thou/cmm RBC 3.97 (L) 4.63 - 6.08 mil/cmm HGB 11.3 (L) 13.7 - 17.5 g/dL Hematocrit 34.9 (L) 40.1 - 51.0 % MCV 87.9 83.2 - 95.6 fl MCH 28.5 25.7 - 32.2 pg MCHC 32.4 32.3 - 36.5 % RDW 13.0 11.6 - 14.4 % RDW-SD 41.9 36.1 - 45.8 fl Platelet Count 211 141 - 365 thou/cmm MPV 10.5 8.7 - 12.0 fl Seg Neutrophil 68.1 % Immature Grans 0.30 % Lymphocyte 20.7 % Monocyte 9.1 % Eosinophil 1.5 % Basophil 0.3 % Seg. Neut. # 5.01 1.78 - 5.38 thou/cmm Immature Grans # 0.02 0.00 - 0.05 thou/cmm Lymphocyte # 1.52 0.84 - 2.85 thou/cmm Monocyte # 0.67 0.30 - 0.82 thou/cmm Eosinophil # 0.11 0.04 - 0.54 thou/cmm Basophil # 0.02 0.01 - 0.08 thou/cmmBASIC METABOLIC PANEL (AK,AV,EU,FV,HL,RADHA,MM,SP)Res ult Value Ref Range Sodium 141 136 - 145 mEq/L Potassium 3.2 (L) 3.5 - 5.1 mEq/L Chloride 107 98 - 107 mEq/L CO2 29 21 - 32 mEq/L Glucose 92 70 - 99 mg/dL BUN 8 7 - 18 mg/dL Creatinine 0.84 0.67 - 1.17 mg/dL Calcium 8.0 (L) 8.5 - 10.1 mg/dL Anion Gap 8 8 - 16SED RATE ERYTHROCYTE (AK,AV,EU,FV,HL,RADHA,MM,SP)Res ult Value Ref Range Sed Rate, Westergren 33 (H) 0 - 15 mm/hrC-REACTIVE PROTEIN (CRP) (AK,AV,EU,FV,HL,RADHA,MM,SP)Res ult Value Ref Range CRP 5.30 (H) 0.00 - 0.30 mg/dLMDRD GFRResult Value Ref Range eGFR >60 >60mL/min/1.13x5WlguzyfdkuTn dical Decision MakingMDMVitals stable. On exam, patient is nontoxic in appearance, AANDOx3, in noacute distress. He has a well circumscribed area of fluctulence over theflexor surface of his right upper arm, near the antecubital region ofapproximately 5 cm diameter that is associated with edema, erythema, andwarmth AND tenderness to palpation. Patient has limited ROM in the R elbowjoint 2/2 to pain. Bedside ultrasound was completed, which show acollection of fluid consistent with complex abscess. CBC, BMP, ESR, CRP,and XR of elbow was ordered. Patient will be treated with Adacel shot, IVanalgesia and IV clindamycin. Ortho at bedside to evaluate patient.X-ray of elbow show anterior elbow soft tissue swelling. Noobvious fat pad displacement. ?No soft tissue gas or radiopaque foreignbody.Labs without leukocytosis. Some mild anemia with hemoglobin 11.3.Electrolyte abnormalities include hypokalemia of 3.2 and hypocalcemia of8. CRP is elevated at 5.3. ESR elevated at 33. Patient will be admittedto orthopedics service for planned IANDD tomorrow in the OR. He remained instable condition throughout his ED course.ED Course / Clinical ImpressionClinical Impressions as of Dec 11 109AbscessPlanThe patient was ADMITTED TO: orthopedic surgery.Condition at time of disposition: stableSIGNATURE: Nacho Salazar (Res) Beatrice, NKZvhycbgg33/12/18 0119Attending NoteI evaluated the patient and personally participated in the ash components. I agree with the resident's findings and plan as documented and havediscussed the case and management of the patient's care with the resident.Signature: Marina Cardenas, MDDate: 12/11/2017Time: 1:29 AMCarol Malini Cardenas MD12/11/17 0129 Normal [facility] ELBOW 2V AP/LAT RIGHTon 11-30 ELBOW 2V AP/LAT RIGHT Performed at [facility] APPROVED BY: CINTIA LOUIS MD EXAM: ELBOW 2V AP/LAT RIGHT HISTORY: Right elbow swelling COMPARISON: None available FINDINGS: See impression. IMPRESSION: Suboptimal positioning limits this evaluation. If the patient is able to tolerate appropriate positioning, recommend repeat frontal view. Otherwise, no acute displaced fracture visualized. There is anterior elbow soft tissue swelling. No obvious fat pad displacement. No soft tissue gas or radiopaque foreign body. Normal [facility] HISTORY PHYSICALon 8 HISTORY PHYSICAL HNO ID: [id number] thor: Cintia Boland (Res)Service: Orthopaedic SurgeryAuthor Type: ResidentType: HANDPFiled: 12/11/2017 12:49 AMNote Text:ORTHOPAEDIC SURGERY HANDPPt: MILES BARRAGANMRN: [id number] of Admission: 12/11/2017Chief Complaint: R elbow painHPI: 32 year old male [facility] ED for orthopaedic consultationafter transfer from an outside emergency department in [place], [place].He reports approximately 5 days ago he was pierced by a metal object intohis right anterior upper extremity just superior to the antecubital fossawhile at work. The pain has progressively been worsening over the pastcouple days. He began developing fevers and chills 3 days ago. He hasnoted purulent, malodorous discharge from the wound as well. He deniespain in the actual elbow joint, but is limited with elbow range of motionsecondary to pain. He has a history of MRSA infection. He received IVantibiotics at the outside emergency department. He denies numbness andtingling in the right lower extremity. He has no other complaints at thistime.No past medical history on file.PAST SURGICAL HISTORYProcedure Laterality Date- TONSILLECTOMY HXAllergies: Septra [Sulfamethoxazole-Trimethopr im]Current Facility-Administered Medications:diphtheria,pertu ssis,tetanus 0.5 mL injection (ADACEL, Tdap) 0.5 mLINTRAMUSCULAR ONCE (IMMUNIZATION)clindamycin 900 mg in D5W 50 mL (CLEOCIN) 900 mg INTRAVENOUS ONCENo current outpatient prescriptions on file.FH: No family history on fileSocial Hx:Social History Main Topics- Smoking status: Not on file- Smokeless tobacco: Not on file- Alcohol use Not on file- Drug use: Unknown- Sexual activity: Not on fileROS: 10 pt ROS neg except in HPIO:Vitals: BP 119/72 Pulse 63 Temp 36.4 ?C (97.5 ?F) (Tympanic) Resp18 Wt 77.1 kg (170 lb) SpO2 100%Physical exam:General: AANDO x 3; NAD. Cooperative throughout entire interviewHead: Atraumatic, NormocephalicNeck: SuppleChest: Unlabored breathingCardiovascular: Palpable distal pulsesAbdomen: Soft, non-tenderPelvis: DeferredNeuro: Grossly intactRight Upper Extremity: There is an erythematous region on the anteriorright upper extremity superior to the antecubital fossa measuringapproximately 6 x 5 cm. The area is indurated with a small region offluctuance and warm to palpation. There is a central <1 cm wound that isscabbed over with no drainage or purulent discharge. Severe TTP whenassessing the abscess. No TTP of the bony elements of the elbow joint. Noshort arc range of motion tenderness. No significant pain with supination,pronation, flexion and extension. +AIN/PIN/U. SILT m/u/r. 2+ radial pulsewith BCR of the digits.Labs:None obtained per the EDImaging:-XR R Elbow: No acute fractures or dislocations. No foreign bodiespresent.A/P: 32 year old male with anterior right upper extremity abscesssuperior to the antecubital fossa-Admit to ortho-Posterior splint RUE-NWB RUE-Pain control-Tetanus given in ED-NPO/IVF-Blood Cultures-Clindamycin 600 q8-DVT PPX - SCDs bilateral lower extremities-Consent for surgery obtained and in the chart-OR 12/11/17 for IANDD right upper extremity with Dr. Bashir-Discussed with Dr. Bashir, all in agreement with assessment and Elina Boland MDOrthopaedic Surgery12/11/201712:22 AM Normal [facility] Hemogram/Diffon 12-11-2017 Abs Immature Grans 0.02 thou/cmm Normal 0.00-0.05 [facility] Comment on above: Performed By: #### C BCD1 ####[place] [address] Abs. Baso 0.02 thou/cmm Normal 0.01-0.08 [facility] Comment on above: Performed By: #### C BCD1 ####[place] [address] Abs. [place] 0.67 thou/cmm Normal 0.30-0.82 [facility] Comment on above: Performed By: #### C BCD1 ####[place] [address] Abs. Neut 5.01 thou/cmm Normal 1.78-5.38 [facility] Comment on above: Performed By: #### C BCD1 ####[place] [address] Basophils/100 WBC Auto (Bld) 0.3 % Normal [facility] Comment on above: Performed By: #### C BCD1 ####[address] [address] Eosinophils 0.11 thou/cmm Normal 0.04-0.54 [facility] Comment on above: Performed By: #### C BCD1 ####[address] [address] Eosinophils/100 leukocytes 1.5 % Normal [facility] Comment on above: Performed By: #### C BCD1 ####[address] [address] Erythrocyte distribution width Auto Ratio (RBC) 13.0 % Normal 11.6-14.4 [facility] Comment on above: Performed By: #### C BCD1 ####[place] [address] Erythrocytes (RBC) 3.97 mil/cmm Low 4.63-6.08 [facility] Comment on above: Performed By: #### C BCD1 ####[place] [address] Hematocrit (HCT) 34.9 % Low 40.1-51.0 [facility] Comment on above: Performed By: #### C BCD1 ####[place] [address] Hemoglobin mass conc (Bld) 11.3 g/dL Low 13.7-17.5 [facility] Comment on above: Performed By: #### C BCD1 ####[address] [address] Immature Grans 0.30 % Normal [facility] Comment on above: Performed By: #### C BCD1 ####[address] [address] Lymphocytes 1.52 thou/cmm Normal 0.84-2.85 [facility] Comment on above: Performed By: #### C BCD1 ####[address] [address] Lymphocytes/100 leukocytes 20.7 % Normal [facility] Comment on above: Performed By: #### C BCD1 ####[address] [address] MCH 28.5 pg Normal 25.7-32.2 [facility] Comment on above: Performed By: #### C BCD1 ####[facility] [place], [place] [address] MCHC mass conc (RBC) 32.4 % Normal 32.3-36.5 [facility] Comment on above: Performed By: #### C BCD1 ####[facility] [place], [place] [address] MCV 87.9 fL Normal 83.2-95.6 [facility] Comment on above: Performed By: #### C BCD1 ####[place] [address] Monocytes/100 leukocytes 9.1 % Normal [facility] Comment on above: Performed By: #### C BCD1 ####[place] [address] Platelet mean volume (PMV) 10.5 fL Normal 8.7-12.0 [facility] Comment on above: Performed By: #### C BCD1 ####[address] [address] Platelets 211 thou/cmm Normal 141-365 [facility] Comment on above: Performed By: #### C BCD1 ####[address] [address] RDW SD 41.9 fl Normal 36.1-45.8 [facility] Comment on above: Performed By: #### C BCD1 ####[address] [address] Seg Neutrophil 68.1 % Normal [facility] Comment on above: Performed By: #### C BCD1 ####[address] [address] WBC (Leukocytes) 7.36 thou/cmm Normal 4.23-9.07 [facility] Comment on above: Performed By: #### C BCD1 ####[address] [address] MDRD GFRon 12-11-2017 eGFR (non-black) mL/min/{1.73_m2} Normal >60mL/m in/1. 73m2 [facility] Comment on above: Result Comment: If t he patient is , multiply the result by 1.210. Performed By: #### G FR ####[facility] [place] [address] OPERATIVE NOon 12-11-2017 OPERATIVE NO HNO ID: [id number] thor: Saúl Bashirice: Orthopaedic SurgeryAuthor Type: PhysicianType: Operative ReportFiled: 12/11/2017 11:02 AMNote Text:OPERATIVE/PROCEDURE REPORTLOG ID: [id number]/PROCEDURE DATE: 12/11/2017INCISION/PROCEDURE START TIME: 9:32 AMINCISION CLOSE/PROCEDURE END TIME: 9:54 AMSURGEON(S)/PROCEDURALIST(S ) AND CONSUMER SALES REPRESENTATIVE(S):Saúl Raygoza Com[employer]uvpreakbar BhandalSURGERY/PROCEDURE(S): Incision and drainage right antecubital fossa abscess, application of deepwound vacANESTHESIA: GeneralSURGERY/PROCEDURE DETAILS: Miles Barragan is a 32 y/o male admitted on12/10/17 for a right antecubital fossa abscess. He was consented for IANDDin the operating room with Dr. Bashir after being informed of the risks,benefits, and alternatives. Patient elected to proceed.A pre-procedure huddle was performed in the pre-op holding area where thepatient was correctly identified. Patient transferred to the OR andtransferred to the operative bed where all bony prominences were wellpadded. General anesthesia was then given by the anesthesia staff. Apre-op timeout was performed according to [facility] Generalprotocol. Patient's right arm was thoroughly prepped in sterileorthopedic fashion. Sterile drapes were then applied.A tourniquet was applied to the right arm but was not used during thecase.A 5 cm incision was made on the lateral aspect of the antecubital fossaoverlying the draining wound. Purulent material was expressed through thewound and cultures were obtained at this time. Vancomycin IV was thengiven at this point by the anesthesia staff. A hemostat was used todissect laterally and distally. A hemostat was gently used to dissectmedially, making sure the underlying fascia was not violated and all thevital structures medially were kept safe. Finger dissection was used toopen up a pocket with loculations being broken up about 12cm medial tolateral, 8 cm distal to proximal, and 3 cm deep.Thorough irrigation then commenced, 3 L of normal saline was used toirrigate the entire wound. After this the wound was inspected and nofurther purulence could be expressed and no devitalized structures werenoted.A wound vac was then applied. One deep foam was placed in the woundreaching the far medial and lateral aspects of the wound ([id number]). Asecond piece of foam was placed on top of the wound. A good seal wasnoted once the vac was placed.A long arm splint was applied, this was assured to be well padded.Patient tolerated the procedure well and no complications arose. Patientwill be transferred to PACU and then back to his room. Plan is to go backto the OR on 12/13/17 for repeat IANDD with wound closure.PRE-OP/PRE-PROCEDURE DIAGNOSIS: Right antecubital fossa abscessPOST-OP/POST-PROCEDUR E DIAGNOSIS: SameESTIMATED BLOOD LOSS: 25 mlsSPECIMENS: Culture sent for aerobic/anaerobicIMPLANTABLE DEVICES: NoneDRAINS: Wound vac applied to right arm, deepCOMPLICATIONS: NonePARTICIPATION IN SURGERY/PROCEDURE: The primary surgeon/proceduralistperform ed the procedure with assistance.Attending NoteFor the surgical procedure, I was physically present during the criticalportion and immediately available during the entire procedure.?Signature: ROSSY LuoIGNATURE: Tim Fontaine MD PATIENT NAME: Miles BarraganDATE: December 11, 2017 : 10:06 AM PAGER/CONTACT #: [phone] [facility] PROGRESSon 12-11-2017 PROGRESS HNO ID: [id number] thor: Jm Walton (Res)Service: Orthopaedic SurgeryAuthor Type: ResidentType: Progress NotesFiled: 12/11/2017 10:18 AMNote Text:Post-op notePOD#0 s/p IANDD right arm- NWB RUE. Posterior long arm spint- Maintain wound vac. 125mmHg continuous moderate suction- Plan for OR on 12/13 for repeat IANDD and wound vac removal- Continue IV Vancomycin Q12H- Follow-up cultures- Pre-op on Tuesday 12/12Jm Walton MDOrthopaedic Surgery, PGY-3Please page [phone] from 5p-6a and on weekends for any issues. Nsdky: [phone] [facility] Sed Rateon 12-11-2017 Sed Rate 33 mm/hr High 0-15 [facility] Comment on above: Performed By: #### E SR ####[place] [address] HOSPon 12-10-2017 HOSP Patient:Miles Barragan RMRN: Height:6' 0(1.829 m)Weight:170 lb (77.111 kg)Outpatient Medications as of 12/13/17:Patient has no current outpatient medications.Admission/Clinic Administered Medications as of 12/13/17:lactated ringers infusionfentaNYL 50 mcg/mL 25 mcg injection (SUBLIMAZE)ondansetron (PF) 4 mg injection (ZOFRAN)prochlorperazine 5 mg injection (COMPAZINE)HYDROmorphone 0.25 mg injection (DILAUDID)NaCl 0.9% iv infusionvancomycin iv piggyback 1 g in D5W 200 mL (VANCOCIN)0.9% NaCl 2-10 mLHYDROcodone 5 mg - acetaminophen 325 mg tablet (NORCO)morphine 2 mg injectionzolpidem 5 mg tab(s) (AMBIEN)diphenhydrAMINE 25 mg (BENADRYL)therapeutic multivitamin with iron (THERAGRAN-M)celecoxib 100 mg cap(s) (CeleBREX)ondansetron 4 mg tab(s) (ZOFRAN)ondansetron (PF) 4 mg injection (ZOFRAN)piperacillin-tazobac buckner 3.375 g in dextrose (iso-osmotic) 50 mL (ZOSYN)Problem List:Abscess of right arm [L02.413]Abscess of arm [L02.419]Nicotine use disorder, F17.2 [F17.200]Allergies:Septra [Sulfamethoxazole-Trimethopr im]Date Verified: 12/13/17Lab ValuesLab Value Units Date High LowPOTA* 3.4 mEq/L 12/13/2017 5.1 3.5HEMA* 31.5 % 12/13/2017 51.0 40.1Progress Notes ():Marina Cardenas MD 12/11/2017 1:29 AM SignedED Provider NotePatient Name: Miles BarraganMRN: [id number] DATE: 12/10/17HistoryPatient presents with:Cyst: right arm abscess since wednesday. pt with h/o mrsaHPIThe patient is a 32-year-old male presenting for evaluation of right distalupper arm abscess, near his antecubital area. Patient states that he sustainedan open wound from being cut by a dirty object that's a part of his truck onSunday. Since Wednesday, the patient noticed a growing mass over the distalportion of his right upper arm that is warm to touch, which has progressivelyenlarged since then. On Wednesday night, patient also developed a fever.However, he denies having recurrence of fever since then. Patient currentlyendorsing inability to fully extend his elbow secondary to pain and swelling.Earlier today, patient was seen at OSH, where they were able to aspirate a goodamount of pus from the area of fluctuance. They also gave him IV antibioticswhile there, although he is unsure which one it is. Patient did not receive atetanus shot, and his tetanus is not up to date. He was subsequently sent overhere for ortho eval, however, he is unsure for what.No past medical history on file.No past surgical history on file.No family history on file.Social HistorySocial History Main Topics- Smoking status: Not on file- Smokeless tobacco: Not on file- Alcohol use Not on file- Drug use: Unknown- Sexual activity: Not on fileALLERGIESAllergen Reactions- Septra [Sulfamethox* HivesReview of SystemsConstitutional: Negative for chills and fever.HENT: Negative for drooling.Eyes: Negative for visual disturbance.Respiratory: Negative for apnea, chest tightness and shortness of breath.Cardiovascular: Negative for chest pain and palpitations.Gastrointestina l: Negative for abdominal pain, diarrhea, nausea and vomiting.Skin: Positive for wound. Negative for pallor.Neurological: Negative for dizziness, numbness and headaches.Hematological: Negative for adenopathy.Psychiatric/Behav ioral: Negative for confusion and suicidal ideas.All other systems reviewed and are negative.Physical ExamBP 119/72 Pulse 63 Temp (Src) 97.5 (Tympanic) Resp 18 Wt 170 lb (77.1kg) SpO2 100%Physical ExamConstitutional: He is oriented to person, place, and time. He appearswell-developed and well-nourished. No distress.HENT:Head: Normocephalic and atraumatic.Mouth/Throat: Oropharynx is clear and moist.Eyes: EOM are normal. Pupils are equal, round, and reactive to light.Neck: Normal range of motion. No tracheal deviation present.Cardiovascular: Normal rate, regular rhythm, normal heart sounds and intactdistal pulses.Pulmonary/Chest: Effort normal and breath sounds normal. No respiratorydistress.Abdomina l: Soft. Bowel sounds are normal. He exhibits no distension. There is notenderness. There is no rebound.Musculoskeletal: Normal range of motion. He exhibits no edema or deformity.Neurological: He is alert and oriented to person, place, and time. He has normalreflexes. No cranial nerve deficit.Skin: Skin is warm and dry.Psychiatric: He has a normal mood and affect. His behavior is normal. Judgmentnormal.Nursing note and vitals reviewed.Diagnostic TestingResults for orders placed or performed during the hospital encounter of 12/10/17XR ELBOW GENERAL 2V AP/LAT RTResult Value Ref Range [facility] [employer] [facility] EXAM: ELBOW 2V AP/LAT RIGHTHISTORY: Right elbow swellingCOMPARISON: None availableFINDINGS: See impression.IMPRESSION:Subopt imal positioning limits this evaluation. If the patient is able totolerate appropriate positioning, recommend repeat frontal view. Otherwise, no acutedisplaced fracture visualized. There is anterior elbow soft tissue swelling.Noobvious fat pad displacement. No soft tissue gas or radiopaque foreign body.CBC + AUTO DIFF (AK,AV,EU,FV,HL,RADHA,MM,SP)Res ult Value Ref Range WBC 7.36 4.23 - 9.07 thou/cmm RBC 3.97 (L) 4.63 - 6.08 mil/cmm HGB 11.3 (L) 13.7 - 17.5 g/dL Hematocrit 34.9 (L) 40.1 - 51.0 % MCV 87.9 83.2 - 95.6 fl MCH 28.5 25.7 - 32.2 pg MCHC 32.4 32.3 - 36.5 % RDW 13.0 11.6 - 14.4 % RDW-SD 41.9 36.1 - 45.8 fl Platelet Count 211 141 - 365 thou/cmm MPV 10.5 8.7 - 12.0 fl Seg Neutrophil 68.1 % Immature Grans 0.30 % Lymphocyte 20.7 % Monocyte 9.1 % Eosinophil 1.5 % Basophil 0.3 % Seg. Neut. # 5.01 1.78 - 5.38 thou/cmm Immature Grans # 0.02 0.00 - 0.05 thou/cmm Lymphocyte # 1.52 0.84 - 2.85 thou/cmm Monocyte # 0.67 0.30 - 0.82 thou/cmm Eosinophil # 0.11 0.04 - 0.54 thou/cmm Basophil # 0.02 0.01 - 0.08 thou/cmmBASIC METABOLIC PANEL (AK,AV,EU,FV,HL,RADHA,MM,SP)Res ult Value Ref Range Sodium 141 136 - 145 mEq/L Potassium 3.2 (L) 3.5 - 5.1 mEq/L Chloride 107 98 - 107 mEq/L CO2 29 21 - 32 mEq/L Glucose 92 70 - 99 mg/dL BUN 8 7 - 18 mg/dL Creatinine 0.84 0.67 - 1.17 mg/dL Calcium 8.0 (L) 8.5 - 10.1 mg/dL Anion Gap 8 8 - 16SED RATE ERYTHROCYTE (AK,AV,EU,FV,HL,RADHA,MM,SP)Res ult Value Ref Range Sed Rate, Westergren 33 (H) 0 - 15 mm/hrC-REACTIVE PROTEIN (CRP) (AK,AV,EU,FV,HL,RADHA,MM,SP)Res ult Value Ref Range CRP 5.30 (H) 0.00 - 0.30 mg/dLMDRD GFRResult Value Ref Range eGFR >60 >60mL/min/1.42c3VeiioymgoiAu dical Decision MakingMDMVitals stable. On exam, patient is nontoxic in appearance, AANDOx3, in no acutedistress. He has a well circumscribed area of fluctulence over the flexorsurface of his right upper arm, near the antecubital region of approximately 5cm diameter that is associated with edema, erythema, and warmth AND tenderness topalpation. Patient has limited ROM in the R elbow joint 2/2 to pain. Bedsideultrasound was completed, which show a collection of fluid consistent withcomplex abscess. CBC, BMP, ESR, CRP, and XR of elbow was ordered. Patient willbe treated with Adacel shot, IV analgesia and IV clindamycin. Ortho at bedsideto evaluate patient.X-ray of elbow show anterior elbow soft tissue swelling. Noobvious fat pad displacement. ?No soft tissue gas or radiopaque foreign body.Labs without leukocytosis. Some mild anemia with hemoglobin 11.3. Electrolyteabnormalities include hypokalemia of 3.2 and hypocalcemia of 8. CRP is elevatedat 5.3. ESR elevated at 33. Patient will be admitted to orthopedics service forplanned IANDD tomorrow in the OR. He remained in stable condition throughout hisED course.ED Course / Clinical ImpressionClinical Impressions as of Dec 11 109AbscessPlanThe patient was ADMITTED TO: orthopedic surgery.Condition at time of disposition: stableSIGNATURE: Nacho Salazar (Res) ALYCE BarronOYUvvwllev22/12/18 0119Attending NoteI evaluated the patient and personally participated in the ash components. Iagree with the resident's findings and plan as documented and have discussed thecase and management of the patient's care with the resident.Signature: RISA Garciaate: 12/11/2017Time: 1:29 Albertina Cardenas MD12/11/17 0129Previous VersionCulowell general hospitalMarina MD 12/10/2017 11:56 PM SignedThe patient presented to the emergency department in [place], [place] when hedeveloped increased pain and swelling over the site on his right arm where hesustained an accidental stab wound from sharp edged object at work 3 days ago.The emergency physician at this facility aspirated pus out of the wound andreferred him here for orthopedic consultation. Upon my exam, the patient doesnot have any involvement of the joint. He has an indurated erythematous areathat is slightly tender over the anterior surface of his distal arm proximal tothe antecubital fossa. There is no restriction of movement of the elbow or theshoulder. There is no lymphangitis. We will obtain a CBC and potentially willlook for any additional fluid by ultrasound over the site. He'll need to seereceive antibiotics. He is in stable condition and will undergo orthopedicconsultation. We will also update his tetanus immunization.Marina Cardenas MD12/10/17 2356Andria Steen (Rn), RN 12/11/2017 12:12 AM Signed Patient ready for x-rayCintia Boland (Res) 12/11/2017 12:49 AM SignedORTHOPAEDIC SURGERY HANDPPt: MILES BARRAGANMRN: [id number] of Admission: 12/11/2017Chief Complaint: R elbow painHPI: 32 year old male [facility] for orthopaedic consultation aftertransfer from an outside emergency department in [place], [place]. He reportsapproximately 5 days ago he was pierced by a metal object into his rightanterior upper extremity just superior to the antecubital fossa while at work.The pain has progressively been worsening over the past couple days. He begandeveloping fevers and chills 3 days ago. He has noted purulent, malodorousdischarge from the wound as well. He denies pain in the actual elbow joint, butis limited with elbow range of motion secondary to pain. He has a history ofMRSA infection. He received IV antibiotics at the outside emergency department.He denies numbness and tingling in the right lower extremity. He has no othercomplaints at this time.No past medical history on file.PAST SURGICAL HISTORYProcedure Laterality Date- TONSILLECTOMY HXAllergies: Septra [Sulfamethoxazole-Trimethopr im]Current Facility-Administered Medications:diphtheria,pertu ssis,tetanus 0.5 mL injection (ADACEL, Tdap) 0.5 mLINTRAMUSCULAR ONCE (IMMUNIZATION)clindamycin 900 mg in D5W 50 mL (CLEOCIN) 900 mg INTRAVENOUS ONCENo current outpatient prescriptions on file.FH: No family history on fileSocial Hx:Social History Main Topics- Smoking status: Not on file- Smokeless tobacco: Not on file- Alcohol use Not on file- Drug use: Unknown- Sexual activity: Not on fileROS: 10 pt ROS neg except in HPIO:Vitals: BP 119/72 Pulse 63 Temp 36.4 ?C (97.5 ?F) (Tympanic) Resp 18 Wt 77.1 kg (170 lb) SpO2 100%Physical exam:General: AANDO x 3; NAD. Cooperative throughout entire interviewHead: Atraumatic, NormocephalicNeck: SuppleChest: Unlabored breathingCardiovascular: Palpable distal pulsesAbdomen: Soft, non-tenderPelvis: DeferredNeuro: Grossly intactRight Upper Extremity: There is an erythematous region on the anterior rightupper extremity superior to the antecubital fossa measuring approximately 6 x 5cm. The area is indurated with a small region of fluctuance and warm topalpation. There is a central <1 cm wound that is scabbed over with no drainageor purulent discharge. Severe TTP when assessing the abscess. No TTP of the bonyelements of the elbow joint. No short arc range of motion tenderness. Nosignificant pain with supination, pronation, flexion and extension. +AIN/PIN/U.SILT m/u/r. 2+ radial pulse with BCR of the digits.Labs:None obtained per the EDImaging:-XR R Elbow: No acute fractures or dislocations. No foreign bodies present.A/P: 32 year old male with anterior right upper extremity abscess superior tothe antecubital fossa-Admit to ortho-Posterior splint RUE-NWB RUE-Pain control-Tetanus given in ED-NPO/IVF-Blood Cultures-Clindamycin 600 q8-DVT PPX - SCDs bilateral lower extremities-Consent for surgery obtained and in the chart-OR 12/11/17 for IANDD right upper extremity with Dr. Bashir-Discussed with Dr. Bashir, all in agreement with assessment and Elina Boland MDOrthopaedic Surgery12/11/201712:22 Andria Ohara (Rn), RN 12/11/2017 1:36 AM Signed Attempted to give report, nurse unable to speak with this nurse at this time,will call back in 15 minutesNarendra Gutierrez 12/11/2017 9:56 AM Signed ANESTHESIOLOGY DAY OF SURGERY NOTESERVICE DATE: 12/11/2017SERVICE TIME: 8:30 AMDOB: 1985Procedure(s) (LRB):INCISION AND DRAINAGE ABSCESS EXTREMITY UPPER (Right)APPLICATION WOUND VAC EXTREMITY UPPER TOTAL WOUND SURFACE LESS THAN 50 SQCENTIMETERS (Right)DEBRIDEMENT SUBCUTANEOUS TISSUE FIRST 20 SQ CM OR LESS UPPER EXTREMITY (Right)Surgeon(s):Saúl Vogt (Res) BhandalThere is no height or weight on file to calculate BMI.Most recent hematocrit and potassium results:Hematocrit 34.9 12/11/2017Potassium 3.2 12/11/2017ANES DOS/PREOP NOTE:Vitals: 200 12/11/1804BP: 108/67 115/52 118/62Pulse: 60 63 64Resp: 16 16 16Temp: 36.7 ?C (98.1 ?F) 37 ?C (98.6 ?F) 36.3 ?C (97.3 ?F)TempSrc: Oral Oral Temporal ArterySpO2: 99% 99% 94%Weight: 77.1 kg (170 lb)ACTIVE PROBLEM LISTAbscess of Right ArmNo past medical history on file.PAST SURGICAL HISTORYProcedure Laterality Date- TONSILLECTOMY HXHistory reviewed. No pertinent family history.Social History:Social HistorySubstance Use Topics- Smoking status: Never Smoker- Smokeless tobacco: Current User Types: Chew- Alcohol use NoNo current facility-administered medications on file prior to encounter.No current outpatient prescriptions on file prior to encounter.Current Facility-Administered Medications:[MAR Hold due to Transfer] NaCl 0.9% iv infusion 100 mL/hr INTRAVENOUSCONTINUOUS Tacho (Res) Tysklind Last Rate: 100 mL/hr at 12/11/17 0307 100 mL/hrat 12/11/17 0307[MAR Hold due to Transfer] ondansetron (PF) 4 mg injection (ZOFRAN) 4 mgINTRAVENOUS q 6 H PRN Tacho (Res) Tysklind[MAR Hold due to Transfer] morphine 2 mg injection 2 mg INTRAVENOUS q 3 H PRNRobert (Res) Tysklind 2 mg at 12/11/17 0728[MAR Hold due to Transfer] oxyCODONE-acetaminophen 5-325 mg 1-2 tablet(PERCOCET) 1-2 tablet ORAL q 6 H PRN Tacho (Res) Tysklind[MAR Hold due to Transfer] potassium chloride iv piggyback 20 mEq in sterilewater 100 mL 20 mEq INTRAVENOUS q 2 H Nuvpreet (Res) Bhandalvancomycin iv piggyback 1 g in D5W 200 mL (VANCOCIN) 1 g INTRAVENOUS ONCEGregory Destin Vrabecvancomycin iv piggyback 1 g in D5W 200 mL (VANCOCIN) 1 g INTRAVENOUS ONCEGregory Destin Vrabecvancomycin iv piggyback 1 g in D5W 200 mL (VANCOCIN) X (OR/PROCEDURE)CONTINUOUS Saúl Anthonyabec 1 g at 12/11/17 0917Allergies:ALLERGIESAller gen Reactions- Septra [Sulfamethox* HivesDOS EXAM: Adequate NPO status: YesAnesthetic risks, benefits, alternatives, personnel and consent discussed: YesPatient agrees to proceed: YesPrevious Anesthesia: No history of adverse event.Airway Assessment: MP 1; Neck ROM: Full ROM without neurologic symptoms; AirwayEvaluation: No significant abnormalitiesSymptoms of Sleep Apnea: Male genderDentition: Poor dentitionAdditional Physical Exam:Lungs: Patient health status unchanged since recent history and physical. Seehistory and physical for exam findings.Cardiac: Patient health status unchanged since recent history and physical. Seehistory and physical for exam findings.Additional Pertinent Findings: N/ABlood Products: Not anticipated for this procedure.Anesthetic Plan: General, Standard ASA MonitorsPain Management Plan: Parenteral or OralASA Class: 2EOther Medical Problems: NoneChronic Beta Emil medication administered within 24 hours: N/AI have interviewed and examined the patient. I have reviewed the medical recordand/or the pre-anesthesia evaluation, pertinent labs, and test results.Significant changes in the patient's condition since the History and Physical,not otherwise documented in primary service progress notes: NoTnewman regional health contains updated information obtained within 48 hours of Surgery/Procedure.SIGNATURE: Narendra Gutierrez DO PATIENT NAME: Miles BarraganDATE: December 11, 2017 : 9:55 AM CSN: [id number] Bashir 12/11/2017 11:02 AM AddendumOPERATIVE/PROCEDURE REPORTLOG ID: [id number]/PROCEDURE DATE: 12/11/2017INCISION/PROCEDURE START TIME: 9:32 AMINCISION CLOSE/PROCEDURE END TIME: 9:54 AMSURGEON(S)/PROCEDURALIST(S ) AND CONSUMER SALES REPRESENTATIVE(S):Saúl Meredith BhandalSURGERY/PROCEDURE(S): Incision and drainage right antecubital fossa abscess, application of deep woundvacANESTHESIA: GeneralSURGERY/PROCEDURE DETAILS: Miles Barragan is a 32 y/o male admitted on 12/10/17 fora right antecubital fossa abscess. He was consented for IANDD in the operatingroom with Dr. Bashir after being informed of the risks, benefits, andalternatives. Patient elected to proceed.A pre-procedure huddle was performed in the pre-op holding area where thepatient was correctly identified. Patient transferred to the OR and transferredto the operative bed where all bony prominences were well padded. Generalanesthesia was then given by the anesthesia staff. A pre-op timeout wasperformed according to [facility] protocol. Patient's rightarm was thoroughly prepped in sterile orthopedic fashion. Sterile drapes werethen applied.A tourniquet was applied to the right arm but was not used during the case.A 5 cm incision was made on the lateral aspect of the antecubital fossaoverlying the draining wound. Purulent material was expressed through the woundand cultures were obtained at this time. Vancomycin IV was then given at thispoint by the anesthesia staff. A hemostat was used to dissect laterally anddistally. A hemostat was gently used to dissect medially, making sure theunderlying fascia was not violated and all the vital structures medially werekept safe. Finger dissection was used to open up a pocket with loculationsbeing broken up about 12cm medial to lateral, 8 cm distal to proximal, and 3 cmdeep.Thorough irrigation then commenced, 3 L of normal saline was used to irrigatethe entire wound. After this the wound was inspected and no further purulencecould be expressed and no devitalized structures were noted.A wound vac was then applied. One deep foam was placed in the wound reachingthe far medial and lateral aspects of the wound ([id number]). A second piece offoam was placed on top of the wound. A good seal was noted once the vac wasplaced.A long arm splint was applied, this was assured to be well padded.Patient tolerated the procedure well and no complications arose. Patient willbe transferred to PACU and then back to his room. Plan is to go back to the ORon 12/13/17 for repeat IANDD with wound closure.PRE-OP/PRE-PROCEDURE DIAGNOSIS: Right antecubital fossa abscessPOST-OP/POST-PROCEDUR E DIAGNOSIS: SameESTIMATED BLOOD LOSS: 25 mlsSPECIMENS: Culture sent for aerobic/anaerobicIMPLANTABLE DEVICES: NoneDRAINS: Wound vac applied to right arm, deepCOMPLICATIONS: NonePARTICIPATION IN SURGERY/PROCEDURE: The primary surgeon/proceduralist performedthe procedure with assistance.Attending NoteFor the surgical procedure, I was physically present during the criticalportion and immediately available during the entire procedure.?Signature: Saúl Bashir [facility] OKLAHOMA CITYIGNATURE: Tim Fontaine MD PATIENT NAME: Miles BarraganDATE: December 11, 2017 : 10:06 AM PAGER/CONTACT #: [phone] Jm Medellin (Res) 12/11/2017 10:18 AM SignedPost-op notePOD#0 s/p IANDD right arm- NWB RUE. Posterior long arm spint- Maintain wound vac. 125mmHg continuous moderate suction- Plan for OR on 12/13 for repeat IANDD and wound vac removal- Continue IV Vancomycin Q12H- Follow-up cultures- Pre-op on Tuesday 12/12Nkm Walton MDOrthopaedic Surgery, PGY-3Please page [phone] from 5p-6a and on weekends for any issues. Mrbrf: [phone], Stephen P 12/11/2017 10:54 AM SignedPOST ANESTHESIA EVALUATION NOTESERVICE DATE: 12/11/2017SERVICE TIME: 10:54 AMDOB: 1985Vitals: 12/11/1804Temp: 36.7 ?C (98.1 ?F) 37 ?C (98.6 ?F) 36.3 ?C (97.3 ?F) 37.2 ?C (99 ?F) 12/11/1809BP: 118/62 135/85 136/95 135/90 12/11/1809Pulse: 64 68 74 71 12/11/1809Resp: 16 16 19 13 12/11/1809SpO2: 94% 100% 100% 97%Validated Vital Signs: YesPOST ANES STATUS: No apparent anesthetic complications. The patient isappropriately hydrated with stable respiratory and cardiovascular status.Patient has safe and adequate airway control. The patient has appropriate painrelief and no significant post operative nausea or vomiting. The patient hasachieved baseline mental status.Further assessment by Anesthesia Service: NoneOther Remarks:SIGNATURE: Narendra Gutierrez DO PATIENT NAME: Miles BarraganDATE: December 11, 2017 : 10:54 AM PAGER/CONTACT #: [phone] Bashir 12/12/2017 10:09 AM AddendumI evaluated the patient and personally participated in the ash components. Iagree with the resident's findings and plan as documented and have discussed thecase and management of the patient's care with the resident.Signature: Cedric Luo Date: 12/12/2017Service Time: 10:09 AMORTHOPAEDIC SURGERY DAILY PROGRESS NOTEPatient Name: Miles Mattate of Evaluation: 12/12/2017 Admission Date: 12/10/2017Time of Evaluation: 3:29 AM :32yo M POD#1 s/p IANDD right arm with wound vac placementPLAN:- PT/OT: Non Weight Bearing Right upper extremity. Long arm splint in place- DVT Prophylaxis: SCDs while in bed and encouraged ambulation- IV Abx: Vancomycin 1g Q12H, Zosyn 3.375g Q8H for empiric coverage. Willtailor antibiotic regiment once organisms and susceptibilities determined- Follow-up cultures. See below- NPO at midnight- Plan for repeat IANDD on 12/13INTERVAL HPI:Patient monitored, no new events overnight.Patient states that they are comfortable. Has some soreness present butotherwise doing okay. Does not specifically remember what grew last time he hadthis happenOBJECTIVE:BP 135/61 Pulse 66 Temp 36.2 ?C (97.2 ?F) (Oral) Resp 18 Ht 182.9 cm(6') Wt 77.1 kg (170 lb) SpO2 100% BMI 23.06 kg/m?Intake/Output Summary (Last 24 hours)12/11 2300 - 12/12 0659In: 350 [PO:100; IV:250]Out: 770 [Urine:770]ExamGeneral: NAD, JCXt9Tlecsesgnfg:Right Upper Extremity: Splint clean, dry and intact. Wound vac with good suction Motor intact M/R/U/Ax SILT M/R/U/Ax BCR 5 fingers Compartments soft, compressible. Tolerates passive stretch of digits.Wound vac output: 50cc since surgeryOR Cultures (12/11): Few Gram positive bacilli, Few Gram positive cocci ,Moderate WBCNuvpreet SRobin Walton MDOrthopaedic Surgery, PGY-3Please page [phone] from 5p-6a and on weekends for any issues.Cell #: [phone] #: [phone]/ 3:29 AMPrevious Tacho Golden (Res) 12/13/2017 6:39 AM SignedORTHOPAEDIC SURGERY DAILY PROGRESS NOTEJacob Omar BarraganDate of Evaluation: 12/13/2017 Admission Date: 12/10/2017Time of Evaluation: 6:13 AM : Tacho Contreras MD PAGER/CONTACT #: [phone]:POD # 2 S/P: right arm IANDD and wound vac placement for abscess.PLAN:- PT/OT: Non Weight Bearing Right upper extremity. Long arm splint in place- DVT Prophylaxis: SCDs while in bed and encouraged ambulation- IV Abx: Vancomycin 1g Q12H, Zosyn 3.375g Q8H for empiric coverage. Willtailor antibiotic regiment once organisms and susceptibilities determined- Follow-up cultures. Few GPB and GBC, follow- NPO at midnight- Plan for repeat IANDD on 12/13- Acute blood loss anemia, Hgb 10.1, monitor, asymptomaticINTERVAL HPI:Patient monitored, no new events overnight.Patient states that they are comfortable. Denies pain. No N/T or motorcomplaints. No CP, SOB, or N/V.OBJECTIVE:BP 139/65 Pulse (!) 56 Temp 36.1 ?C (97 ?F) (Temporal Artery) Resp 17 Ht 182.9 cm (6') Wt 77.1 kg (170 lb) SpO2 100% BMI 23.06 kg/m?Intake/Output Summary (Last 24 hours)12/12 2300 - 12/13 0659In: 200 [IV:200]Out: 400 [Urine:400]Exam:General: NADExtremities:Right Upper Extremity: Splint c/d/I Vac in place to suction, no leak SILT all digits BCR all digits + wiggle all fingersLabs:CBC:HGB (g/dL)Date Value12/13/2017 10.1 Hematocrit (%)Date Value12/13/2017 31.5 WBC (thou/cmm)Date Value12/13/2017 4.82 Platelet Count (thou/cmm)Date Value12/13/2017 210 BMP:Glucose (mg/dL)Date Value12/13/2017 84 Potassium (mEq/L)Date Value12/13/2017 3.4 Sodium (mEq/L)Date Value12/13/2017 142 Chloride (mEq/L)Date Value12/13/2017 110 CO2 (mEq/L)Date Value12/13/2017 27 Creatinine (mg/dL)Date Value12/13/2017 0.79 BUN (mg/dL)Date Value12/13/2017 6 Anion Gap (no units)Date Value12/13/2017 8 Calcium (mg/dL)Date Value12/13/2017 8.5 COAGS:No results found for: INRSURGICAL PATHOLOGY:N/AFLUID ANALYSIS:N/AImaging: no new imagingFabby Wang (Rn), RN 12/13/2017 8:34 AM SignedPer MD notes, pt will have a repeat I AND D today. Pt is currently on 2 IV atbs. +wound vac currently. If pt needs to go home with wound vac that is notdisposable, [facility] will need wound measurements to obtain proper vac viainsurance..Fabby Wang (Rn), RN 12/13/2017 11:25 AM SignedCARE MANAGEMENT: ASSESSMENT AND DISCHARGE PLANSERVICE DATE: 12/13/2017SERVICE TIME: 1047PRIMARY CARE PHYSICIAN:No primary care provider on file.Phone: NoneADMISSION STATUS: InpatientNeeds Prior to Discharge: Procedure;To Be Determined (if needs vac at d/c;please chart wound measurements (unless it is Prevena vac))MEDICAL:Patient/Represe ntative Stated Goals:To have reduction in painTo have reduction in symptomsTo return home to life as it wasTo be cured/healedHealth Insurance: [employer]el[employer] Issues Impacting Discharge Plan: NoneLast Admission Date: noneIs this Within the Past 30 days? NoAdvance Directive:Health Literacy:1. How often do you need to have someone help you when you read instructions,pamphlets, or other written material from your doctor or pharmacy? Never - 12. How confident are you filling out medical forms by yourself? Extremely - 1If Patient scores > 3 on either question, the following interventions were putinto place:Patient did not score > 3FUNCTIONAL AND COGNITIVE/BEHAVIORALPRIOR TO ADMISSION:Baseline Mental Status: Alert AND Oriented, Person, Place , Time and SituationFunctional Status: IndependentDoes Patient Currently Receive Any Community Services or Home Care? NoneEquipment Prior to Admission: Cane - Unknown typeCrutchesHas the Patient Been in a Senior Living Facility in the Past 30 days? NoSOCIAL:Living Arrangement: HomeLives With: Spouse and and 2 kidsFinancial Resources: Employed: [employer]Primary Contact: Extended Emergency Contact InformationPrimary Emergency Contact: Mallorie Barragan Stacebqa: NoneSupportive: YesOther Important Patient Contacts: NoneCaregiver Assessment:Caregiver is ready, willing and able to meet the patient's needs as recommendedby the inter-professional team? YesPatient's transition needs and plan for meeting these needs: yesDoes the patient have an acute stroke diagnosis, or has the patient had a strokeduring this admission? NoMedication Adherence:I am convinced of the importance of my prescription medication: Agree completely- 0I worry that my prescription medication will do more harm than good to meDisagree completely - 0I feel financially burdened by my [id number]-[id number] expenses for my prescriptionmedication: Disagree completely - 0Patient is categorized as low risk < 2Are you interested in bedside delivery of your medications? YesFood Concerns:In the Last Month, Have You had Trouble Getting Food? No trouble getting foodDuring the Last Month, Have You Worried Whether Your Food Would Run Out BeforeYou Had Enough Money to Buy More? NoIs the Patient Psychosocially Complex? NoASSESSMENT AND PLAN:Medical Needs: NonePsychosocial Needs: NoneFREEDOM OF CHOICE EXPLAINED:Yes pt wants CCAG VNS if HC is necessary at d/c.POTENTIAL TRANSITION PLANSTo Be Determined+ wound vac currently; repeat I AND D today.SIGNATURE: Fabby Wang RN PATIENT NAME: Miles MattaTE: December 13, 2017 : 11:23 AM PAGER/CONTACT #: [phone], Lori (Rn), RN 12/13/2017 11:42 AM [facility] P[employer] MEAT NOTESERVICE DATE: 12/13/2017SERVICE TIME: 11:42 AMReferral:[facility] Infusion benefitsWill continue to follow for physician ordersSIGNATURE: Starr Iniguez RN PATIENT NAME: Miles MattaVIVIAN: December 13, 2017 : 11:42 Maxi Peralta (Rn), RN 12/13/2017 11:42 AM SignedID consulted for homegoing PO antibiotics.Romeo Ty 12/13/2017 2:39 PM Addendum ANESTHESIOLOGY DAY OF SURGERY NOTESERVICE DATE: 12/13/2017SERVICE TIME: 1:33 PMDOB: 1985Procedure(s) (LRB):INCISION AND DRAINAGE ABSCESS EXTREMITY UPPER (Right)DEBRIDEMENT MUSCLE AND FASCIA UPPER EXTREMITY EACH ADDITIONAL 20 SQ CM (Right)Surgeon(s):Saúl Mosstimated body mass index is 23.06 kg/m? as calculated from the following: Height as of this encounter: 182.9 cm (6'). Weight as of this encounter: 77.1 kg (170 lb).Most recent hematocrit and potassium results:Hematocrit 31.5 12/13/2017Potassium 3.4 12/13/2017ANES DOS/PREOP NOTE:Vitals: 12/13/179900 255 937 313BP: 119/62 139/65 127/69 112/56Pulse: (!) 53 (!) 56 74 (!) 53Resp: 16 17 18 18Temp: 36.8 ?C (98.2 ?F) 36.1 ?C (97 ?F) 36.9 ?C (98.4 ?F) 36 ?C (96.8 ?F)TempSrc: Temporal Artery Temporal Artery Oral Temporal ArterySpO2: 100% 100% 100% 100%Weight:Height:ACTIVE PROBLEM LISTAbscess of Right ArmAbscess of ArmNicotine use disorder, F17.2No past medical history on file.PAST SURGICAL HISTORYProcedure Laterality Date- TONSILLECTOMY HXHistory reviewed. No pertinent family history.Social History:Social HistorySubstance Use Topics- Smoking status: Never Smoker- Smokeless tobacco: Current User Types: Chew- Alcohol use NoNo current facility-administered medications on file prior to encounter.No current outpatient prescriptions on file prior to encounter.Current Facility-Administered Medications:[MAR Hold due to Transfer] NaCl 0.9% iv infusion 100 mL/hr INTRAVENOUSCONTINUOUS Saúl Bashir Last Rate: 100 mL/hr at 12/12/17 2318 100 mL/hrat 12/12/17 2318[MAR Hold due to Transfer] vancomycin iv piggyback 1 g in D5W 200 mL (VANCOCIN)1 g INTRAVENOUS q 12 HR Saúl Destni Vrabec Last Rate: 200 mL/hr at 202 1 g at 12/13/17 1202[MAR Hold due to Transfer] 0.9% NaCl 2-10 mL 2-10 mL INTRAVENOUS q 12 H GregoryAlan Vrabec 3 mL at 12/13/17 0900[MAR Hold due to Transfer] HYDROcodone 5 mg - acetaminophen 325 mg tablet(NORCO) 1-2 tablet ORAL q 6 H PRN Saúl Destin Vrabec 2 tablet at 12/13/17 0846[MAR Hold due to Transfer] morphine 2 mg injection 2 mg INTRAVENOUS q 2 H PRNGregory Destin Vrabec[MAR Hold due to Transfer] zolpidem 5 mg tab(s) (AMBIEN) 5 mg ORAL HS PRNGregory Destin Vrabec[MAR Hold due to Transfer] diphenhydrAMINE 25 mg (BENADRYL) 25 mg ORAL q 4 H PRNGregory Destin Vrabec[MAR Hold due to Transfer] therapeutic multivitamin with iron (THERAGRAN-M) 1tablet ORAL DAILY Saúl Destin Vrabec 1 tablet at 12/13/17 0846[MAR Hold due to Transfer] celecoxib 100 mg cap(s) (CeleBREX) 100 mg ORAL BIDGregory Destin Vrabec 100 mg at 12/13/17 0846[MAR Hold due to Transfer] ondansetron 4 mg tab(s) (ZOFRAN) 4 mg ORAL q 6 H PRNGregory Destin VrabecOr[MAR Hold due to Transfer] ondansetron (PF) 4 mg injection (ZOFRAN) 4 mgINTRAVENOUS q 6 H PRN Saúl Destin Vrabec[MAR Hold due to Transfer] piperacillin-tazobactam 3.375 g in dextrose(iso-osmotic) 50 mL (ZOSYN) 3.375 g INTRAVENOUS q 6 H Saúl Destin Vrabec LastRate: 100 mL/hr at 12/13/17 0846 3.375 g at 12/13/17 0846Allergies:ALLERGIESAller gen Reactions- Septra [Sulfamethox* HivesDOS EXAM: Adequate NPO status: YesAnesthetic risks, benefits, alternatives, personnel and consent discussed: YesPatient agrees to proceed: YesPrevious Anesthesia: No history of adverse event.Airway Assessment: MP 1; Neck ROM: Full ROM without neurologic symptoms; AirwayEvaluation: No significant abnormalitiesSymptoms of Sleep Apnea: Male genderDentition: Teeth intactAdditional Physical Exam:Lungs: Patient health status unchanged since recent history and physical. Seehistory and physical for exam findings.Cardiac: Patient health status unchanged since recent history and physical. Seehistory and physical for exam findings.Additional Pertinent Findings: N/ABlood Products: Not anticipated for this procedure.Anesthetic Plan: General, Standard ASA MonitorsPain Management Plan: Parenteral or OralASA Class: 2Other Medical Problems: NoneChronic Beta Emil medication administered within 24 hours: N/AI have interviewed and examined the patient. I have reviewed the medical recordand/or the pre-anesthesia evaluation, pertinent labs, and test results.Significant changes in the patient's condition since the History and Physical,not otherwise documented in primary service progress notes: [facility] updated information obtained within 48 hours of Surgery/Procedure.SIGNATURE: Romeo Ty MD PATIENT NAME: Miles BarraganDATE: December 13, 2017 : 1:33 PM CSN: [id number] Version Normal [facility] Encounters Encounter Date Encounter Type Care Provider Facility Start: 10-23-2023 End: 10-23-2023 Emergency department patient visit JOSSCary COATS [facility] Start: 08-12-2018 Patient encounter procedure GUI BASILIO Facility:[facility] Start: 06-17-2018 Patient encounter procedure ROMINA BELL [facility] Start: 06-06-2018 Patient encounter procedure ROMINA BELL [facility] Start: 05-23-2018 Patient encounter procedure ROMINA BELL Facility:[facility] Start: 01-27-2018 Patient encounter procedure ROMINA BELL [facility] Start: 12-11-2017 End: 12-13-2017 Evaluation and management of inpatient SAÚL BARR [facility] Start: 11-17-2017 Patient encounter procedure NOEL GIBBONS Facility:[facility] Payers Date Payer Category Payer Self-pay 1985 Unknown [id number] Unknown [id number] Unknown [id number] Unknown [id number] Summary Purpose Family History No Family History Records FoundNo Family History Records FoundNo Family History Records FoundNo Family History Records FoundNo Family History Records Found Advance Directives No Advanced Directives Records FoundNo Advanced Directives Records FoundNo Advanced Directives Records FoundNo Advanced Directives Records FoundNo Advanced Directives Records Found Additional Source Comments (unrecognized sect ion and content) No Status Records FoundNo Status Records FoundNo Status Records FoundNo Status Records FoundNo Status Records Found INFORMATION SOURCE (unrecogn ized section and content) DATE CREATED AUTHOR 01/19/2018 [facility] DATE CREATED AUTHOR AUTHOR'S ORGANIZ ATION 01/19/2018 [facility] DATE CREATED AUTHOR AUTHOR'S ORGANIZ ATION 07/10/2018 [facility] DATE CREATED AUTHOR AUTHOR'S ORGANIZ ATION 08/16/2018 [facility] DATE CREATED AUTHOR AUTHOR'S ORGANIZ ATION 10/24/2023 [facility] FOR RECORDS PERTAINING TO PATIENTS WHO ARE OR HAVE BEEN ENROLLED IN A CHEMICAL DEPENDENCY/SUBSTANCEABUSE PROGRAM, SOME INFORMATION MAY BE OMITTED. This clinical summary was aggregated from multiple sources. Caution should be exercised in using it in the provision of clinical care. This summary normalizes information from multiple sources, and as a consequence, information in this document may materially change the coding, format and clinical context of patient data. In addition, data may be omitted in some cases. CLINICAL DECISIONS SHOULD BE BASED ON THE PRIMARY CLINICAL RECORDS. [facility] [employer] provides no warranty or guarantee of the accuracy or completeness of information in this document.
[2025-08-01 09:49] VITALS: BP 164/97; PULSE 78; RESP 17; TEMP 36.9; O2SAT 100
--- NOTE | 2025-08-01 10:30 | CM.ED ---
Social work Reason for referral: substance abuse Referral source: Dr Nicolas LOERA entered patient's room, introducing self and role at [facility]. Patient welcomed SW visit and stated desire to discharge home to visit with patient's father who is in town from [place]. SW actively listened to patient's struggles with alcohol and patient stated weaning self off of alcohol slowly due to not wanting to have seizures. Patient was encouraged to stay for [facility], but patient stated intent to return to [facility] ED in a couple of days once patient's father had left to go home. Patient was provided resources of [facility], [facility] treatment facilities, coping skills, local AA meetings, etc. Patient thanked EVARISTO for resources as this is all I need right now. EVARISTO updated doctor and RN. Diana Byrnes, INTERNATIONAL COORDINATOR, [employer]
[2025-08-01 11:01] VITALS: BP 137/89; PULSE 73; RESP 16; TEMP 36.7; O2SAT 100
== END 2025-08-01 11:01 | disposition home or self-care (01) ==
PROVIDERS: Emergency Provider Emergency Medicine; Visit Provider Emergency Medicine
DX: F10.10 Alcohol abuse, uncomplicated (principal); F11.10 Opioid abuse, uncomplicated; Z13.9 Encounter for screening, unspecified; Z86.14 Personal history of Methicillin resistant Staphylococcus aureus infection; Y90.9 Presence of alcohol in blood, level not specified
CPT/HCPCS: 99282